=== PATIENT | female | born 1945 | race Two or more races ===

== ENCOUNTER 2022-06-06 12:38 | Inpatient (IN) | payer MEDICARE, MEDICAID ==
[~2022-06-06] VITALS: Ht 165.1 cm; Wt 95.9 kg
[2022-06-06] MEDS ORDERED: HYDRALAZINE 20MG/ML VIAL IV ONE (14:00)
[2022-06-06] MEDS ORDERED: ACETAMINOPHEN 325MG TABLET PO ONE (14:00)
[2022-06-06 14:50] LABS: MEAN CORPUSCULAR HEMOGLOBIN 30.9 pg (28.0-32.0); MEAN CORPUSCULAR VOLUME 90.6 fL (81.0-99.0); MEAN PLATELET VOLUME 9.1 fl (7.4-10.4); PLATELET 258 x1000/uL (130-400); RED BLOOD CELL COUNT 5.52 mill/uL (4.2-5.4); RED CELL DISTRIBUTION WIDTH 13.5 % (11.6-14.6)
[2022-06-06 14:56] LABS: CHLORIDE 96 mEq/L (98-107)
[2022-06-06] MEDS ORDERED: ONDANSETRON HCL 4MG/2ML INJ IV ONE (15:00)
[2022-06-06] MEDS ORDERED: SODIUM CHLORIDE 0.9% 1,000 ML IV SCH (15:00)
[2022-06-06 15:17] LABS: PLATELET ESTIMATE NORMAL
[2022-06-06 15:26] LABS: CLARITY URINE CLEAR (CLEAR); COLOR URINE YELLOW (YELLOW); KETONES URINE 3+ (NEGATIVE); LEUKOCYTE ESTERASE URINE NEGATIVE (NEGATIVE); NITRITE URINE NEGATIVE (NEGATIVE); OCCULT BLOOD URINE 1+ (NEGATIVE); PH URINE 6.5 (4.5-8.0); PROTEIN URINE 3+ (NEGATIVE); SPECIFIC GRAVITY URINE 1.021 (1.005-1.030)
[2022-06-06] MEDS ORDERED: ASPIRIN 325MG EC TABLET PO NR (15:30)
[2022-06-06] MEDS ORDERED: HALOPERIDOL LACTATE 5MG/ML VIAL IM ONE (18:00)
[2022-06-06] MEDS ORDERED: LORAZEPAM 2MG/ML CPJ IV ONE (19:15)
[2022-06-06] MEDS ORDERED: ENOXAPARIN 80MG/0.8ML SYR SUBCUT NR (21:30)
[2022-06-06] MEDS ORDERED: BENZ1TAB79 PO (22:33)
[2022-06-06] MEDS ORDERED: HALO2TAB2 PO (22:36)
[2022-06-06] MEDS ORDERED: AMLO10TA4 PO (22:36)
[2022-06-06] MEDS ORDERED: LOSA25TA3 PO (22:36)
[2022-06-06] MEDS ORDERED: DIVA125T2 PO (22:36)
[2022-06-06] MEDS ORDERED: DEXTROSE 50% WATER 50ML SYRINGE IV PRN (22:45)
[2022-06-06] MEDS ORDERED: ACETAMINOPHEN 325MG TABLET PO PRN (22:45)
[2022-06-06] MEDS: BLOOD SUGAR DIAGNOSTIC STRIP TEST SCH (22:50)
[2022-06-06] MEDS: INSULIN LISPRO 100 UNITS/ML SUBCUT SCH (22:50)
[2022-06-06 23:00] VITALS: BP 168/60
[2022-06-06] MEDS ORDERED: NITROGLYCERIN 0.4MG TABLET SL SL PRN (23:15)
[2022-06-06] MEDS: HYDRALAZINE 20MG/ML VIAL IV PRN (23:25)
[2022-06-07] MEDS: BLOOD SUGAR DIAGNOSTIC STRIP TEST SCH ×4 (06:18→21:00)
[2022-06-07 07:19] LABS: PROTHROMBIN TIME 10.3 sec (9.6-11.0)
[2022-06-07 07:20] LABS: HEMATOCRIT. 45.6 % (36.0-48.0); HEMOGLOBIN. 15.9 g/dL (12.0-16.0); MEAN CORPUSCULAR HEMOGLOBIN 31.1 pg (28.0-32.0); MEAN CORPUSCULAR VOLUME 89.3 fL (81.0-99.0); MEAN PLATELET VOLUME 8.8 fl (7.4-10.4); PLATELET 271 x1000/uL (130-400); RED BLOOD CELL COUNT 5.11 mill/uL (4.2-5.4); RED CELL DISTRIBUTION WIDTH 13.7 % (11.6-14.6)
[2022-06-07 07:37] LABS: CHLORIDE 99 mEq/L (98-107)
[2022-06-07 07:47] LABS: HDL CHOLESTEROL 97 mg/dL (40-59); LDL CHOLESTEROL 74 mg/dL (5-100)
[2022-06-07 08:00] VITALS: BP 127/67
[2022-06-07] MEDS: INSULIN LISPRO 100 UNITS/ML SUBCUT SCH ×3 (08:10→17:54)
[2022-06-07] MEDS ORDERED: METOPROLOL SUCCINATE 50MG ER TABLET PO SCH (09:00)
[2022-06-07] MEDS: METOPROLOL TARTRATE 50MG TABLET PO SCH ×2 (09:00→23:22)
[2022-06-07] MEDS: HALOPERIDOL 5MG TABLET PO SCH (09:00)
[2022-06-07] MEDS: DIVALPROEX SODIUM 125MG DR TABLET PO SCH ×2 (09:00→16:42)
[2022-06-07] MEDS: LOSARTAN POTASSIUM 25 MG TABLET PO SCH (09:00)
[2022-06-07] MEDS: ATORVASTATIN CALCIUM 40MG TABLET PO SCH (09:00)
[2022-06-07] MEDS: AMLODIPINE 10MG TABLET PO SCH (09:00)
[2022-06-07] MEDS: BENZTROPINE MESYLATE 1MG TABLET PO SCH ×2 (09:00→16:42)
[2022-06-07] MEDS: ENOXAPARIN 80MG/0.8ML SYR SUBCUT SCH ×2 (09:00→23:21)
[2022-06-07 14:06] LABS: PLATELET ESTIMATE NORMAL
[2022-06-07] MEDS ORDERED: CEFTRIAXONE 1GM PREMIX 50 ML IV SCH (14:30)
[2022-06-07 16:00] VITALS: BP 156/66
[2022-06-07] MEDS: CEFTRIAXONE 1,000 MG in DEXTROSE 5% WATER 50 ML IV SCH (16:00)
[2022-06-07 20:00] VITALS: BP 136/88
[2022-06-08] VITALS: BP 140/69
[2022-06-08 04:00] VITALS: BP 135/71
[2022-06-08 06:15] LABS: BASOPHILS % 0.1 % (0.0-2.0); HEMOGLOBIN. 15.9 g/dL (12.0-16.0); LYMPHOCYTES % 7.9 % (20.0-50.0); MEAN CORPUSCULAR HEMOGLOBIN 31.1 pg (28.0-32.0); MEAN CORPUSCULAR VOLUME 90.1 fL (81.0-99.0); MEAN PLATELET VOLUME 8.9 fl (7.4-10.4); MONOCYTES % 6.3 % (2.0-8.0); NEUTROPHILS % 85.7 % (40.0-76.0); PLATELET 254 x1000/uL (130-400); RED CELL DISTRIBUTION WIDTH 13.9 % (11.6-14.6)
[2022-06-08] MEDS: BLOOD SUGAR DIAGNOSTIC STRIP TEST SCH ×4 (07:53→20:51)
[2022-06-08 08:00] VITALS: BP 159/77
[2022-06-08 08:21] LABS: CHLORIDE 104 mEq/L (98-107)
[2022-06-08] MEDS: AMLODIPINE 10MG TABLET PO SCH (08:59)
[2022-06-08] MEDS: LOSARTAN POTASSIUM 25 MG TABLET PO SCH (08:59)
[2022-06-08] MEDS: HALOPERIDOL 5MG TABLET PO SCH (08:59)
[2022-06-08] MEDS: METOPROLOL TARTRATE 50MG TABLET PO SCH ×2 (08:59→20:51)
[2022-06-08] MEDS: BENZTROPINE MESYLATE 1MG TABLET PO SCH ×2 (09:00→17:16)
[2022-06-08] MEDS: ENOXAPARIN 80MG/0.8ML SYR SUBCUT SCH ×2 (09:00→20:50)
[2022-06-08] MEDS: ASPIRIN 81MG TABLET PO SCH (09:00)
[2022-06-08] MEDS: ATORVASTATIN CALCIUM 40MG TABLET PO SCH (10:04)
[2022-06-08 12:00] VITALS: BP 150/100
[2022-06-08] MEDS ORDERED: POTASSIUM CHLORIDE 20MEQ TABLET SR PO NR (13:00)
[2022-06-08 16:00] VITALS: BP 134/69
[2022-06-08] MEDS: CEFTRIAXONE 1,000 MG in DEXTROSE 5% WATER 50 ML IV SCH (17:07)
[2022-06-08] MEDS: DIVALPROEX SODIUM 125MG SPRINKLE CAPSULE PO SCH (17:16)
[2022-06-08 20:00] VITALS: BP 147/63
[2022-06-09] VITALS: BP 160/79
[2022-06-09] MEDS: HYDRALAZINE 20MG/ML VIAL IV PRN (00:04)
[2022-06-09 04:00] VITALS: BP 127/71
[2022-06-09] MEDS: BLOOD SUGAR DIAGNOSTIC STRIP TEST SCH ×4 (06:49→21:00)
[2022-06-09 08:00] VITALS: BP 148/68
[2022-06-09] MEDS: LOSARTAN POTASSIUM 25 MG TABLET PO SCH (08:17)
[2022-06-09] MEDS: ASPIRIN 81MG TABLET PO SCH (08:18)
[2022-06-09] MEDS: ATORVASTATIN CALCIUM 40MG TABLET PO SCH (09:00)
[2022-06-09] MEDS: DIVALPROEX SODIUM 125MG SPRINKLE CAPSULE PO SCH ×2 (09:00→17:00)
[2022-06-09] MEDS: METOPROLOL TARTRATE 50MG TABLET PO SCH ×2 (09:00→21:00)
[2022-06-09] MEDS: HALOPERIDOL 5MG TABLET PO SCH (09:00)
[2022-06-09] MEDS: AMLODIPINE 10MG TABLET PO SCH (09:00)
[2022-06-09] MEDS: BENZTROPINE MESYLATE 1MG TABLET PO SCH ×2 (09:00→17:00)
[2022-06-09] MEDS: ENOXAPARIN 80MG/0.8ML SYR SUBCUT SCH ×2 (10:23→21:43)
[2022-06-09] MEDS: CEFTRIAXONE 1,000 MG in DEXTROSE 5% WATER 50 ML IV SCH (15:17)
[2022-06-09 16:00] VITALS: BP 108/98
[2022-06-09 20:00] VITALS: BP 118/78
[2022-06-10] VITALS (33 sets, daily range): BP systolic 79–152; BP diastolic 51–107
[2022-06-10] MEDS: ACETAMINOPHEN 650MG SUPP PR PRN (01:25)
[2022-06-10 01:47] LABS: CHLORIDE 109 mEq/L (98-107)
[2022-06-10] MEDS: BLOOD SUGAR DIAGNOSTIC STRIP TEST SCH ×2 (05:24→18:00)
[2022-06-10 05:31] LABS: BASOPHILS % 0.1 % (0.0-2.0); HEMATOCRIT. 49.8 % (36.0-48.0); HEMOGLOBIN. 16.4 g/dL (12.0-16.0); LYMPHOCYTES % 8.4 % (20.0-50.0); MEAN CORPUSCULAR HEMOGLOBIN 30.2 pg (28.0-32.0); MEAN CORPUSCULAR VOLUME 91.9 fL (81.0-99.0); MEAN PLATELET VOLUME 9.1 fl (7.4-10.4); MONOCYTES % 11.3 % (2.0-8.0); NEUTROPHILS % 80.2 % (40.0-76.0); PLATELET 292 x1000/uL (130-400); RED BLOOD CELL COUNT 5.42 mill/uL (4.2-5.4)
[2022-06-10] MEDS: ATORVASTATIN CALCIUM 40MG TABLET PO SCH (09:00)
[2022-06-10] MEDS: METOPROLOL TARTRATE 50MG TABLET PO SCH ×2 (09:00→20:25)
[2022-06-10] MEDS: LOSARTAN POTASSIUM 25 MG TABLET PO SCH (09:00)
[2022-06-10] MEDS: AMLODIPINE 10MG TABLET PO SCH (09:00)
[2022-06-10 11:50] LABS: BG BASE EXCESS 3.5 mmol/L (-2.0-2.0); BG CARBOXYHEMOGLOBIN 0.5 % (0.5-1.5); BG DEOXYHEMOGLOBIN 6.9 % (0.0-5.0); BG FRACTION INSPIRED OXYGEN 28; BG HCO3 ACT 26.7 mmol/L (22.0-26.0); BG OXYGEN SATURATION 93.1 % (92.0-98.5); BG OXYHEMOGLOBIN 92.6 % (94.0-97.0); BG PCO2 36.2 mmHg (35.0-45.0); BG PH 7.485 (7.350-7.450); BG PO2 65.8 mmHg (75.0-100.0); BG SAMPLE SITE LEFT RADIAL; BG TOTAL HEMOGLOBIN 17.6 g/dL (12.0-18.0); BG VENT MODE NASAL CANNULA
[2022-06-10] MEDS ORDERED: LEVETIRACETAM 500 MG in SODIUM CHLORIDE 0.9% 100 ML IV SCH (12:30)
[2022-06-10] MEDS ORDERED: POTASSIUM CHLORIDE INJ 40 MEQ in DEXT 5% WATER 250 ML IV ONE (12:30)
[2022-06-10] MEDS ORDERED: NICARDIPINE 50 MG in SODIUM CHLORIDE 0.9% 230 ML IV PRN (12:30)
[2022-06-10] MEDS ORDERED: SODIUM CHLORIDE 0.9% 1,000 ML IV SCH (13:00)
[2022-06-10] MEDS ORDERED: MANNITOL 12.5G (25%) VIAL 50ML IV ONE (13:15)
[2022-06-10] MEDS: NICARDIPINE 100 MG in SODIUM CHLORIDE 0.9% 60 ML IV PRN (13:58)
[2022-06-10] MEDS ORDERED: LEVETIRACETAM 500MG PREMIX 100 ML IV SCH (14:00)
[2022-06-10] MEDS ORDERED: PROTAMINE SULFATE 10MG/ML VIAL 5ML IV NR (14:00)
[2022-06-10] MEDS ORDERED: MANNITOL 20% 200 ML IV NR (14:30)
[2022-06-10 14:36] LABS: BG BASE EXCESS 2.2 mmol/L (-2.0-2.0); BG CARBOXYHEMOGLOBIN 0.6 % (0.5-1.5); BG DEOXYHEMOGLOBIN 0.6 % (0.0-5.0); BG FRACTION INSPIRED OXYGEN 100; BG HCO3 ACT 26.3 mmol/L (22.0-26.0); BG METHEMOGLOBIN 0.3 % (0.0-1.5); BG OXYGEN SATURATION 99.4 % (92.0-98.5); BG OXYHEMOGLOBIN 98.5 % (94.0-97.0); BG PCO2 39.3 mmHg (35.0-45.0); BG PH 7.444 (7.350-7.450); BG PO2 451.1 mmHg (75.0-100.0); BG SAMPLE SITE RIGHT BRACHIAL; BG TOTAL HEMOGLOBIN 16.9 g/dL (12.0-18.0); BG VENT MODE VENT - AC
[2022-06-10] MEDS ORDERED: LIDOCAINE HCL/EPINEPHRINE 1%-EPI 1:100,000 30 ML VIAL INFIL ONE (14:37)
[2022-06-10] MEDS ORDERED: GENTAMICIN SULF 40MG/ML 2ML VIAL ONE (14:37)
[2022-06-10] MEDS ORDERED: ROCURONIUM BROMIDE 10MG/ML VIAL 5ML IV ONE (15:02)
[2022-06-10] MEDS ORDERED: NEOSTIGMINE METHYLSULFATE 1MG/ML 10 ML VIAL ONE (15:02)
[2022-06-10] MEDS ORDERED: GLYCOPYRROLATE 0.2 MG/ML 2ML VIAL ONE ×2 (15:02→15:03)
[2022-06-10] MEDS ORDERED: DEXAMETHASONE 4MG/ML 1ML VIAL ONE (15:02)
[2022-06-10] MEDS ORDERED: PROPOFOL 200MG/20ML VIAL IV ONE (15:02)
[2022-06-10] MEDS ORDERED: ONDANSETRON HCL 4MG/2ML INJ ONE (15:02)
[2022-06-10] MEDS ORDERED: MIDAZOLAM HCL 2 MG/2 ML VIAL ONE (15:03)
[2022-06-10] MEDS ORDERED: FENTANYL CITRATE/PF 50MCG/ML 2ML VIAL ONE (15:03)
[2022-06-10] MEDS ORDERED: NOREPINEPHRINE 8 MG in DEXTROSE 5% WATER 250 ML IV PRN (16:00)
[2022-06-10] MEDS ORDERED: NOREPINEPHRINE 8MG/250ML PMX 250 ML IV PRN (16:02)
[2022-06-10] MEDS ORDERED: BACITRACIN 15GM TUBE TOP ONE (16:21)
[2022-06-10] MEDS ORDERED: NALOXONE HCL 0.4MG/ML VIAL IV PRN (17:45)
[2022-06-10] MEDS ORDERED: MORPHINE SULFATE 4 MG/ML CPJ (NOT FOR IM USE) IV PRN (17:45)
[2022-06-10] MEDS ORDERED: BLOOD SUGAR DIAGNOSTIC STRIP TEST SCH (18:00)
[2022-06-10] MEDS ORDERED: PIPERACILLIN/TAZOBACTAM 3.375 G in DEXTROSE 5% WATER 50 ML IV NR (18:30)
[2022-06-10] MEDS: CEFAZOLIN 1000MG PREMIX 50 ML IV SCH (19:30)
[2022-06-10] MEDS: IPRATROPIUM/ALBUTEROL 0.5-3(2.5)MG/3ML NEB HHN SCH (20:22)
[2022-06-10] MEDS: LEVETIRACETAM 500MG PREMIX 100 ML IV SCH (20:32)
[2022-06-10] MEDS ORDERED: CEFAZOLIN SODIUM 1000MG/VIAL IV SCH (22:00)
[2022-06-10] MEDS: PIPERACILLIN/TAZOBACTAM 3.375 G in DEXTROSE 5% WATER 50 ML IV SCH (22:11)
[2022-06-10] MEDS: KCL 20MEQ/100ML X 2 FOR TOTAL KCL 40MEQ/200ML IV SCH (22:37)
[2022-06-11] VITALS (91 sets, daily range): BP systolic 72–136; BP diastolic 59–95
[2022-06-11] MEDS: BLOOD SUGAR DIAGNOSTIC STRIP TEST SCH ×5 (00:17→21:35)
[2022-06-11] MEDS: KCL 20MEQ/100ML X 2 FOR TOTAL KCL 40MEQ/200ML IV SCH (00:18)
[2022-06-11] MEDS: CEFAZOLIN 1000MG PREMIX 50 ML IV SCH ×3 (02:33→18:35)
[2022-06-11] MEDS: IPRATROPIUM/ALBUTEROL 0.5-3(2.5)MG/3ML NEB HHN SCH ×4 (02:35→20:22)
[2022-06-11] MEDS: FENTANYL 2500MCG/250ML PMX 250 ML IV PRN (02:57)
[2022-06-11 04:41] LABS: BASOPHILS % 0.3 % (0.0-2.0); LYMPHOCYTES % 10.9 % (20.0-50.0); MEAN CORPUSCULAR HEMOGLOBIN 30.5 pg (28.0-32.0); MEAN CORPUSCULAR VOLUME 91.5 fL (81.0-99.0); MEAN PLATELET VOLUME 9.1 fl (7.4-10.4); MONOCYTES % 13.6 % (2.0-8.0); NEUTROPHILS % 75.2 % (40.0-76.0); PLATELET 235 x1000/uL (130-400); RED BLOOD CELL COUNT 5.24 mill/uL (4.2-5.4); RED CELL DISTRIBUTION WIDTH 13.7 % (11.6-14.6)
[2022-06-11] MEDS: PIPERACILLIN/TAZOBACTAM 3.375 G in DEXTROSE 5% WATER 50 ML IV SCH ×3 (05:19→22:58)
[2022-06-11] MEDS: LOSARTAN POTASSIUM 25 MG TABLET PO SCH (09:00)
[2022-06-11] MEDS: METOPROLOL TARTRATE 50MG TABLET PO SCH (09:00)
[2022-06-11] MEDS: AMLODIPINE 10MG TABLET PO SCH (09:00)
[2022-06-11] MEDS: ATORVASTATIN CALCIUM 40MG TABLET PO SCH (09:00)
[2022-06-11] MEDS: DEXT 5%/LACTATED RINGERS 1,000 ML IV SCH (09:19)
[2022-06-11] MEDS: LEVETIRACETAM 500MG PREMIX 100 ML IV SCH ×2 (09:19→21:35)
[2022-06-11 10:59] LABS: BG BASE EXCESS 1.1 mmol/L (-2.0-2.0); BG CARBOXYHEMOGLOBIN 1.2 % (0.5-1.5); BG DEOXYHEMOGLOBIN 2.5 % (0.0-5.0); BG FRACTION INSPIRED OXYGEN 40; BG METHEMOGLOBIN 0.1 % (0.0-1.5); BG OXYGEN SATURATION 97.5 % (92.0-98.5); BG OXYHEMOGLOBIN 96.2 % (94.0-97.0); BG PCO2 29.8 mmHg (35.0-45.0); BG PH 7.505 (7.350-7.450); BG PO2 92.6 mmHg (75.0-100.0); BG SAMPLE SITE ALINE; BG TOTAL HEMOGLOBIN 16.1 g/dL (12.0-18.0); BG VENT MODE VENT - AC
[2022-06-11] MEDS ORDERED: DEXTROSE 50% WATER 50ML SYRINGE IV PRN (12:45)
[2022-06-11] MEDS: INSULIN LISPRO 100 UNITS/ML SUBCUT SCH ×2 (18:36→21:36)
[2022-06-12] VITALS (96 sets, daily range): BP systolic 78–124; BP diastolic 45–87
[2022-06-12] MEDS: NICARDIPINE 100 MG in SODIUM CHLORIDE 0.9% 60 ML IV PRN ×2 (01:59→22:00)
[2022-06-12] MEDS: DEXT 5%/LACTATED RINGERS 1,000 ML IV SCH ×2 (02:00→17:29)
[2022-06-12] MEDS: CEFAZOLIN 1000MG PREMIX 50 ML IV SCH ×3 (02:01→18:09)
[2022-06-12] MEDS: IPRATROPIUM/ALBUTEROL 0.5-3(2.5)MG/3ML NEB HHN SCH ×4 (02:30→20:05)
[2022-06-12 05:16] LABS: BASOPHILS % 0.1 % (0.0-2.0); EOSINOPHILS % 0.1 % (0.0-5.0); HEMATOCRIT. 44.2 % (36.0-48.0); HEMOGLOBIN. 14.6 g/dL (12.0-16.0); MEAN CORPUSCULAR HEMOGLOBIN 30.5 pg (28.0-32.0); MEAN CORPUSCULAR VOLUME 92.6 fL (81.0-99.0); MEAN PLATELET VOLUME 9.6 fl (7.4-10.4); MONOCYTES % 9.2 % (2.0-8.0); NEUTROPHILS % 79.6 % (40.0-76.0); PLATELET 177 x1000/uL (130-400); RED BLOOD CELL COUNT 4.77 mill/uL (4.2-5.4); RED CELL DISTRIBUTION WIDTH 14.4 % (11.6-14.6)
[2022-06-12] MEDS: PIPERACILLIN/TAZOBACTAM 3.375 G in DEXTROSE 5% WATER 50 ML IV SCH ×3 (05:34→21:03)
[2022-06-12] MEDS: BLOOD SUGAR DIAGNOSTIC STRIP TEST SCH ×4 (06:14→21:03)
[2022-06-12] MEDS: INSULIN LISPRO 100 UNITS/ML SUBCUT SCH ×5 (06:18→21:04)
[2022-06-12] MEDS ORDERED: POTASSIUM CHLORIDE INJ 40 MEQ in DEXT 5% WATER 250 ML IV ONE (08:00)
[2022-06-12] MEDS: LEVETIRACETAM 500MG PREMIX 100 ML IV SCH ×2 (08:58→21:03)
[2022-06-12] MEDS: PANTOPRAZOLE SODIUM 40 MG/VIAL IV SCH (08:58)
[2022-06-12] MEDS: ATORVASTATIN CALCIUM 40MG TABLET PO SCH (08:58)
[2022-06-12 09:11] LABS: BG BASE EXCESS 2.1 mmol/L (-2.0-2.0); BG CARBOXYHEMOGLOBIN 0.1 % (0.5-1.5); BG DEOXYHEMOGLOBIN 3.7 % (0.0-5.0); BG FRACTION INSPIRED OXYGEN 40; BG HCO3 ACT 25.7 mmol/L (22.0-26.0); BG METHEMOGLOBIN 0.3 % (0.0-1.5); BG OXYGEN SATURATION 96.3 % (92.0-98.5); BG OXYHEMOGLOBIN 95.9 % (94.0-97.0); BG PCO2 37.2 mmHg (35.0-45.0); BG PH 7.458 (7.350-7.450); BG PO2 89.1 mmHg (75.0-100.0); BG SAMPLE SITE RIGHT RADIAL; BG TOTAL HEMOGLOBIN 15.4 g/dL (12.0-18.0); BG VENT MODE VENT - AC
[2022-06-12] MEDS: KCL 20MEQ/100ML X 2 FOR TOTAL KCL 40MEQ/200ML IV SCH ×2 (10:23→11:46)
[2022-06-13] VITALS (93 sets, daily range): BP systolic 94–126; BP diastolic 61–82
[2022-06-13] MEDS: IPRATROPIUM/ALBUTEROL 0.5-3(2.5)MG/3ML NEB HHN SCH ×4 (01:56→20:42)
[2022-06-13] MEDS: NICARDIPINE 100 MG in SODIUM CHLORIDE 0.9% 60 ML IV PRN ×2 (02:51→13:05)
[2022-06-13 05:33] LABS: BASOPHILS % 0.1 % (0.0-2.0); EOSINOPHILS % 0.2 % (0.0-5.0); HEMATOCRIT. 47.7 % (36.0-48.0); HEMOGLOBIN. 15.8 g/dL (12.0-16.0); LYMPHOCYTES % 10.1 % (20.0-50.0); MEAN CORPUSCULAR HEMOGLOBIN 31.3 pg (28.0-32.0); MEAN CORPUSCULAR VOLUME 94.9 fL (81.0-99.0); MEAN PLATELET VOLUME 9.9 fl (7.4-10.4); MONOCYTES % 10.3 % (2.0-8.0); NEUTROPHILS % 79.3 % (40.0-76.0); PLATELET 97 x1000/uL (130-400); RED BLOOD CELL COUNT 5.03 mill/uL (4.2-5.4)
[2022-06-13] MEDS: BLOOD SUGAR DIAGNOSTIC STRIP TEST SCH ×4 (05:42→20:40)
[2022-06-13] MEDS: PIPERACILLIN/TAZOBACTAM 3.375 G in DEXTROSE 5% WATER 50 ML IV SCH ×3 (05:43→22:39)
[2022-06-13] MEDS: INSULIN LISPRO 100 UNITS/ML SUBCUT SCH ×4 (05:59→20:40)
[2022-06-13 07:46] LABS: BG BASE EXCESS 1.4 mmol/L (-2.0-2.0); BG CARBOXYHEMOGLOBIN 0.3 % (0.5-1.5); BG DEOXYHEMOGLOBIN 2.8 % (0.0-5.0); BG HCO3 ACT 24.9 mmol/L (22.0-26.0); BG METHEMOGLOBIN 0.3 % (0.0-1.5); BG OXYGEN SATURATION 97.2 % (92.0-98.5); BG OXYHEMOGLOBIN 96.6 % (94.0-97.0); BG PCO2 35.7 mmHg (35.0-45.0); BG PH 7.461 (7.350-7.450); BG PO2 97.7 mmHg (75.0-100.0); BG SAMPLE SITE RIGHT RADIAL; BG TOTAL HEMOGLOBIN 14.5 g/dL (12.0-18.0); BG VENT MODE VENT - AC
[2022-06-13] MEDS: LEVETIRACETAM 500MG PREMIX 100 ML IV SCH ×2 (08:52→20:40)
[2022-06-13] MEDS: ATORVASTATIN CALCIUM 40MG TABLET PO SCH (08:52)
[2022-06-13] MEDS: PANTOPRAZOLE SODIUM 40 MG/VIAL IV SCH (08:52)
[2022-06-13] MEDS ORDERED: ACETAMINOPHEN 325MG TABLET PO PRN (10:00)
[2022-06-13] MEDS: DEXT 5%/LACTATED RINGERS 1,000 ML IV SCH (11:58)
[2022-06-14] VITALS (96 sets, daily range): BP systolic 100–145; BP diastolic 44–94
[2022-06-14] MEDS: IPRATROPIUM/ALBUTEROL 0.5-3(2.5)MG/3ML NEB HHN SCH ×4 (01:30→20:31)
[2022-06-14] MEDS: DEXT 5%/LACTATED RINGERS 1,000 ML IV SCH (03:45)
[2022-06-14] MEDS: PIPERACILLIN/TAZOBACTAM 3.375 G in DEXTROSE 5% WATER 50 ML IV SCH ×3 (06:13→21:33)
[2022-06-14] MEDS: BLOOD SUGAR DIAGNOSTIC STRIP TEST SCH ×4 (06:13→20:32)
[2022-06-14] MEDS: INSULIN LISPRO 100 UNITS/ML SUBCUT SCH ×4 (06:14→20:32)
[2022-06-14] MEDS: FENTANYL 2500MCG/250ML PMX 250 ML IV PRN (07:26)
[2022-06-14] MEDS: LEVETIRACETAM 500MG PREMIX 100 ML IV SCH ×2 (08:32→20:32)
[2022-06-14] MEDS: ATORVASTATIN CALCIUM 40MG TABLET PO SCH (08:32)
[2022-06-14] MEDS: PANTOPRAZOLE SODIUM 40 MG/VIAL IV SCH (08:32)
[2022-06-14] MEDS: NICARDIPINE 100 MG in SODIUM CHLORIDE 0.9% 60 ML IV PRN ×2 (09:27→22:16)
[2022-06-14 09:54] LABS: BASOPHILS % 0.1 % (0.0-2.0); EOSINOPHILS % 0.2 % (0.0-5.0); HEMOGLOBIN. 14.2 g/dL (12.0-16.0); LYMPHOCYTES % 8.8 % (20.0-50.0); MEAN CORPUSCULAR HEMOGLOBIN 30.7 pg (28.0-32.0); MEAN PLATELET VOLUME 10.2 fl (7.4-10.4); MONOCYTES % 10.8 % (2.0-8.0); NEUTROPHILS % 80.1 % (40.0-76.0); PLATELET 109 x1000/uL (130-400); RED BLOOD CELL COUNT 4.62 mill/uL (4.2-5.4); RED CELL DISTRIBUTION WIDTH 14.1 % (11.6-14.6)
[2022-06-14 09:58] LABS: CHLORIDE 130 mEq/L (98-107)
[2022-06-14] MEDS: SODIUM CHLORIDE 0.45% 1,000 ML IV SCH (12:09)
[2022-06-14] MEDS: KCL 20MEQ/100ML PREMIX 100 ML IV SCH ×2 (13:40→15:48)
[2022-06-14] MEDS: MORPHINE SULFATE 4 MG/ML CPJ (NOT FOR IM USE) IV PRN (23:10)
[2022-06-15] VITALS (94 sets, daily range): BP systolic 96–144; BP diastolic 60–99
[2022-06-15] MEDS: MORPHINE SULFATE 4 MG/ML CPJ (NOT FOR IM USE) IV PRN (01:18)
[2022-06-15] MEDS: IPRATROPIUM/ALBUTEROL 0.5-3(2.5)MG/3ML NEB HHN SCH ×3 (02:25→13:41)
[2022-06-15 05:03] LABS: BASOPHILS % 0.1 % (0.0-2.0); EOSINOPHILS % 0.1 % (0.0-5.0); HEMATOCRIT. 40.8 % (36.0-48.0); LYMPHOCYTES % 8.3 % (20.0-50.0); MEAN CORPUSCULAR HEMOGLOBIN 30.2 pg (28.0-32.0); MEAN CORPUSCULAR VOLUME 94.7 fL (81.0-99.0); MEAN PLATELET VOLUME 10.1 fl (7.4-10.4); MONOCYTES % 10.9 % (2.0-8.0); NEUTROPHILS % 80.6 % (40.0-76.0); PLATELET 88 x1000/uL (130-400); RED BLOOD CELL COUNT 4.31 mill/uL (4.2-5.4); RED CELL DISTRIBUTION WIDTH 14.9 % (11.6-14.6)
[2022-06-15 05:17] LABS: CHLORIDE 131 mEq/L (98-107)
[2022-06-15] MEDS: SODIUM CHLORIDE 0.45% 1,000 ML IV SCH ×2 (06:13→22:16)
[2022-06-15] MEDS: BLOOD SUGAR DIAGNOSTIC STRIP TEST SCH ×4 (06:13→21:39)
[2022-06-15] MEDS: PIPERACILLIN/TAZOBACTAM 3.375 G in DEXTROSE 5% WATER 50 ML IV SCH ×3 (06:13→22:16)
[2022-06-15] MEDS: INSULIN LISPRO 100 UNITS/ML SUBCUT SCH ×4 (06:14→21:00)
[2022-06-15] MEDS: LEVETIRACETAM 500MG PREMIX 100 ML IV SCH ×2 (08:17→21:28)
[2022-06-15] MEDS: ATORVASTATIN CALCIUM 40MG TABLET PO SCH (08:17)
[2022-06-15] MEDS: PANTOPRAZOLE SODIUM 40 MG/VIAL IV SCH (08:17)
[2022-06-15] MEDS ORDERED: FENTANYL 2500MCG/250ML PMX 250 ML IV PRN (15:00)
[2022-06-15] MEDS ORDERED: DESMOPRESSIN ACETATE 4MCG/ML AMP IV NR (16:00)
[2022-06-16] VITALS (93 sets, daily range): BP systolic 85–125; BP diastolic 53–89
[2022-06-16 05:10] LABS: BASOPHILS % 0.1 % (0.0-2.0); EOSINOPHILS % 0.5 % (0.0-5.0); HEMATOCRIT. 39.2 % (36.0-48.0); HEMOGLOBIN. 12.5 g/dL (12.0-16.0); LYMPHOCYTES % 8.2 % (20.0-50.0); MEAN CORPUSCULAR HEMOGLOBIN 30.5 pg (28.0-32.0); MEAN CORPUSCULAR VOLUME 95.9 fL (81.0-99.0); MEAN PLATELET VOLUME 11.1 fl (7.4-10.4); MONOCYTES % 7.6 % (2.0-8.0); NEUTROPHILS % 83.6 % (40.0-76.0); PLATELET 81 x1000/uL (130-400); RED BLOOD CELL COUNT 4.08 mill/uL (4.2-5.4); RED CELL DISTRIBUTION WIDTH 15.1 % (11.6-14.6)
[2022-06-16 05:25] LABS: CHLORIDE 132 mEq/L (98-107)
[2022-06-16] MEDS: NICARDIPINE 100 MG in SODIUM CHLORIDE 0.9% 60 ML IV PRN (06:03)
[2022-06-16] MEDS: BLOOD SUGAR DIAGNOSTIC STRIP TEST SCH ×4 (06:10→21:51)
[2022-06-16] MEDS: INSULIN LISPRO 100 UNITS/ML SUBCUT SCH ×4 (06:11→21:00)
[2022-06-16 08:09] LABS: BG BASE EXCESS 1.4 mmol/L (-2.0-2.0); BG CARBOXYHEMOGLOBIN 0.3 % (0.5-1.5); BG DEOXYHEMOGLOBIN 6.4 % (0.0-5.0); BG HCO3 ACT 24.6 mmol/L (22.0-26.0); BG METHEMOGLOBIN 0.3 % (0.0-1.5); BG OXYGEN SATURATION 93.6 % (92.0-98.5); BG PCO2 34.5 mmHg (35.0-45.0); BG PH 7.471 (7.350-7.450); BG PO2 69.7 mmHg (75.0-100.0); BG SAMPLE SITE RIGHT RADIAL; BG TOTAL HEMOGLOBIN 12.8 g/dL (12.0-18.0); BG VENT MODE VENT - AC
[2022-06-16] MEDS: ATORVASTATIN CALCIUM 40MG TABLET PO SCH (09:24)
[2022-06-16] MEDS: PANTOPRAZOLE SODIUM 40 MG/VIAL IV SCH (09:24)
[2022-06-16] MEDS: LEVETIRACETAM 500MG PREMIX 100 ML IV SCH ×2 (09:42→21:05)
[2022-06-16] MEDS: SODIUM CHLORIDE 0.45% 1,000 ML IV SCH (15:38)
[2022-06-16] MEDS: DESMOPRESSIN ACETATE 4MCG/ML AMP IV SCH (19:03)
[2022-06-17] VITALS (86 sets, daily range): BP systolic 112–150; BP diastolic 57–91
[2022-06-17 04:45] LABS: BASOPHILS % 0.1 % (0.0-2.0); EOSINOPHILS % 0.9 % (0.0-5.0); HEMATOCRIT. 36.5 % (36.0-48.0); HEMOGLOBIN. 11.9 g/dL (12.0-16.0); LYMPHOCYTES % 12.6 % (20.0-50.0); MEAN CORPUSCULAR HEMOGLOBIN 30.6 pg (28.0-32.0); MEAN CORPUSCULAR VOLUME 94.2 fL (81.0-99.0); MEAN PLATELET VOLUME 11.6 fl (7.4-10.4); MONOCYTES % 7.2 % (2.0-8.0); NEUTROPHILS % 79.2 % (40.0-76.0); PLATELET 75 x1000/uL (130-400); RED BLOOD CELL COUNT 3.88 mill/uL (4.2-5.4); RED CELL DISTRIBUTION WIDTH 14.3 % (11.6-14.6)
[2022-06-17 04:46] LABS: CHLORIDE 135 mEq/L (98-107)
[2022-06-17] MEDS: DESMOPRESSIN ACETATE 4MCG/ML AMP IV SCH ×2 (06:01→17:52)
[2022-06-17] MEDS ORDERED: DEXT 5% WATER 100 ML IV SCH (06:15)
[2022-06-17] MEDS: DEXTROSE 5% WATER 1,000 ML IV SCH (06:40)
[2022-06-17] MEDS: INSULIN LISPRO 100 UNITS/ML SUBCUT SCH ×4 (06:48→21:00)
[2022-06-17] MEDS: BLOOD SUGAR DIAGNOSTIC STRIP TEST SCH ×4 (06:48→21:21)
[2022-06-17] MEDS ORDERED: POTASSIUM CHLORIDE 20MEQ/PACKET PO SCH (08:00)
[2022-06-17] MEDS: ATORVASTATIN CALCIUM 40MG TABLET PO SCH (08:24)
[2022-06-17] MEDS: PANTOPRAZOLE SODIUM 40 MG/VIAL IV SCH (08:24)
[2022-06-17] MEDS: LEVETIRACETAM 500MG PREMIX 100 ML IV SCH ×2 (08:24→21:21)
[2022-06-17 08:47] LABS: BG CARBOXYHEMOGLOBIN 0.4 % (0.5-1.5); BG DEOXYHEMOGLOBIN 4.1 % (0.0-5.0); BG FRACTION INSPIRED OXYGEN 40; BG HCO3 ACT 23.3 mmol/L (22.0-26.0); BG METHEMOGLOBIN 0.1 % (0.0-1.5); BG OXYGEN SATURATION 95.9 % (92.0-98.5); BG OXYHEMOGLOBIN 95.4 % (94.0-97.0); BG PCO2 33.6 mmHg (35.0-45.0); BG PH 7.458 (7.350-7.450); BG SAMPLE SITE RIGHT RADIAL; BG TOTAL HEMOGLOBIN 12.8 g/dL (12.0-18.0); BG VENT MODE VENT - AC
[2022-06-17] MEDS: AMLODIPINE 10MG TABLET PO SCH (09:51)
[2022-06-18] VITALS (90 sets, daily range): BP systolic 108–151; BP diastolic 54–98
[2022-06-18 05:14] LABS: BASOPHILS % 0.1 % (0.0-2.0); EOSINOPHILS % 1.2 % (0.0-5.0); HEMATOCRIT. 39.4 % (36.0-48.0); HEMOGLOBIN. 12.7 g/dL (12.0-16.0); LYMPHOCYTES % 9.3 % (20.0-50.0); MEAN CORPUSCULAR HEMOGLOBIN 30.8 pg (28.0-32.0); MEAN CORPUSCULAR VOLUME 95.3 fL (81.0-99.0); MEAN PLATELET VOLUME 11.9 fl (7.4-10.4); MONOCYTES % 5.9 % (2.0-8.0); NEUTROPHILS % 83.5 % (40.0-76.0); PLATELET 86 x1000/uL (130-400); RED BLOOD CELL COUNT 4.13 mill/uL (4.2-5.4); RED CELL DISTRIBUTION WIDTH 14.8 % (11.6-14.6)
[2022-06-18 05:20] LABS: CHLORIDE 134 mEq/L (98-107)
[2022-06-18 05:24] LABS: PHOSPHORUS 3.2 mg/dL (2.5-4.9)
[2022-06-18] MEDS: DESMOPRESSIN ACETATE 4MCG/ML AMP IV SCH ×2 (05:36→17:39)
[2022-06-18] MEDS: DEXTROSE 5% WATER 1,000 ML IV SCH ×3 (05:37→21:20)
[2022-06-18] MEDS: BLOOD SUGAR DIAGNOSTIC STRIP TEST SCH ×4 (06:17→21:21)
[2022-06-18] MEDS: INSULIN LISPRO 100 UNITS/ML SUBCUT SCH ×4 (06:17→21:00)
[2022-06-18] MEDS: PANTOPRAZOLE SODIUM 40 MG/VIAL IV SCH (08:28)
[2022-06-18] MEDS: ATORVASTATIN CALCIUM 40MG TABLET PO SCH (08:28)
[2022-06-18] MEDS: LEVETIRACETAM 500MG PREMIX 100 ML IV SCH ×2 (08:29→21:21)
[2022-06-18] MEDS: AMLODIPINE 10MG TABLET PO SCH (08:29)
[2022-06-18 08:45] LABS: BG BASE EXCESS 2.1 mmol/L (-2.0-2.0); BG CARBOXYHEMOGLOBIN 0.6 % (0.5-1.5); BG DEOXYHEMOGLOBIN 2.2 % (0.0-5.0); BG FRACTION INSPIRED OXYGEN 40; BG HCO3 ACT 25.9 mmol/L (22.0-26.0); BG METHEMOGLOBIN 0.1 % (0.0-1.5); BG OXYGEN SATURATION 97.8 % (92.0-98.5); BG OXYHEMOGLOBIN 97.1 % (94.0-97.0); BG PCO2 37.5 mmHg (35.0-45.0); BG PH 7.457 (7.350-7.450); BG PO2 105.4 mmHg (75.0-100.0); BG SAMPLE SITE RIGHT RADIAL; BG TOTAL HEMOGLOBIN 13.6 g/dL (12.0-18.0); BG TOTAL RESPIRATORY RATE 17 b/min; BG VENT MODE VENT - SIMV
[2022-06-18] MEDS: HYDRALAZINE HCL 50MG TABLET PO SCH ×3 (09:51→21:20)
[2022-06-19] VITALS (83 sets, daily range): BP systolic 99–159; BP diastolic 22–104
[2022-06-19 05:27] LABS: CHLORIDE 123 mEq/L (98-107)
[2022-06-19] MEDS: BLOOD SUGAR DIAGNOSTIC STRIP TEST SCH ×4 (06:30→21:00)
[2022-06-19] MEDS: DESMOPRESSIN ACETATE 4MCG/ML AMP IV SCH ×2 (06:53→17:59)
[2022-06-19] MEDS: HYDRALAZINE HCL 50MG TABLET PO SCH ×3 (06:53→21:31)
[2022-06-19] MEDS: NICARDIPINE 100 MG in SODIUM CHLORIDE 0.9% 60 ML IV PRN (06:53)
[2022-06-19] MEDS: INSULIN LISPRO 100 UNITS/ML SUBCUT SCH ×4 (06:54→21:00)
[2022-06-19] MEDS ORDERED: POTASSIUM CHLORIDE 20MEQ/PACKET PO NR (08:00)
[2022-06-19 08:58] LABS: BASOPHILS % 0.1 % (0.0-2.0); EOSINOPHILS % 0.5 % (0.0-5.0); HEMATOCRIT. 38.7 % (36.0-48.0); HEMOGLOBIN. 12.6 g/dL (12.0-16.0); LYMPHOCYTES % 7.9 % (20.0-50.0); MEAN CORPUSCULAR HEMOGLOBIN 30.6 pg (28.0-32.0); MEAN CORPUSCULAR VOLUME 94.1 fL (81.0-99.0); MEAN PLATELET VOLUME 11.9 fl (7.4-10.4); MONOCYTES % 6.1 % (2.0-8.0); NEUTROPHILS % 85.4 % (40.0-76.0); PLATELET 97 x1000/uL (130-400); RED BLOOD CELL COUNT 4.11 mill/uL (4.2-5.4); RED CELL DISTRIBUTION WIDTH 14.8 % (11.6-14.6)
[2022-06-19] MEDS: PANTOPRAZOLE SODIUM 40 MG/VIAL IV SCH (09:29)
[2022-06-19] MEDS: LEVETIRACETAM 500MG PREMIX 100 ML IV SCH ×2 (09:30→21:31)
[2022-06-19] MEDS: ATORVASTATIN CALCIUM 40MG TABLET PO SCH (09:30)
[2022-06-19] MEDS: AMLODIPINE 10MG TABLET PO SCH (09:30)
[2022-06-19] MEDS: DEXTROSE 5% WATER 1,000 ML IV SCH (09:31)
[2022-06-19] MEDS ORDERED: POTASSIUM CHLORIDE INJ 40 MEQ in DEXT 5% WATER 250 ML IV ONE (09:45)
[2022-06-19 10:20] LABS: INR 1.1; PROTHROMBIN TIME 11.4 sec (9.6-11.0)
[2022-06-19] MEDS: KCL 20MEQ/100ML X 2 FOR TOTAL KCL 40MEQ/200ML IV SCH ×2 (11:25→12:53)
[2022-06-19] MEDS ORDERED: ROCURONIUM BROMIDE 10MG/ML VIAL 5ML IV ONE (13:08)
[2022-06-19] MEDS ORDERED: FENTANYL CITRATE/PF 50MCG/ML 2ML VIAL ONE (13:08)
[2022-06-20] VITALS (51 sets, daily range): BP systolic 100–159; BP diastolic 57–87
[2022-06-20] MEDS: DEXTROSE 5% WATER 1,000 ML IV SCH (03:02)
[2022-06-20 05:57] LABS: HEMATOCRIT. 37.1 % (36.0-48.0); HEMOGLOBIN. 12.2 g/dL (12.0-16.0); MEAN CORPUSCULAR HEMOGLOBIN 30.5 pg (28.0-32.0); MEAN CORPUSCULAR VOLUME 92.9 fL (81.0-99.0); MEAN PLATELET VOLUME 12.5 fl (7.4-10.4); PLATELET 96 x1000/uL (130-400); RED BLOOD CELL COUNT 3.99 mill/uL (4.2-5.4); RED CELL DISTRIBUTION WIDTH 14.2 % (11.6-14.6)
[2022-06-20] MEDS: DESMOPRESSIN ACETATE 4MCG/ML AMP IV SCH ×2 (05:57→17:56)
[2022-06-20] MEDS: BLOOD SUGAR DIAGNOSTIC STRIP TEST SCH ×4 (05:57→23:35)
[2022-06-20] MEDS: HYDRALAZINE HCL 50MG TABLET PO SCH ×3 (05:57→21:29)
[2022-06-20 06:03] LABS: CHLORIDE 118 mEq/L (98-107)
[2022-06-20 06:09] LABS: PHOSPHORUS 2.2 mg/dL (2.5-4.9)
[2022-06-20] MEDS: INSULIN LISPRO 100 UNITS/ML SUBCUT SCH ×4 (06:33→23:38)
[2022-06-20] MEDS: PANTOPRAZOLE SODIUM 40 MG/VIAL IV SCH (08:59)
[2022-06-20] MEDS: LEVETIRACETAM 500MG PREMIX 100 ML IV SCH ×2 (08:59→21:28)
[2022-06-20] MEDS: ATORVASTATIN CALCIUM 40MG TABLET PO SCH (08:59)
[2022-06-20] MEDS: AMLODIPINE 10MG TABLET PO SCH (09:00)
[2022-06-20] MEDS ORDERED: POTASSIUM PHOS,M-BASIC-D-BASIC 20 MMOL in DEXT 5% WATER 243.3333 ML IV NR (09:00)
[2022-06-20] MEDS: METOPROLOL TARTRATE 25MG TABLET PO SCH ×2 (09:01→21:29)
[2022-06-20 12:33] LABS: NUCLEATED RED BLOOD CELLS 1 /100 WBC; PLATELET ESTIMATE DECREASED
[2022-06-20] MEDS: ACETAMINOPHEN 650MG SUPP PR PRN ×2 (15:32→17:55)
[2022-06-21] VITALS (48 sets, daily range): BP systolic 96–143; BP diastolic 61–83
[2022-06-21] MEDS ORDERED: ACETAMINOPHEN 650MG/20.3ML UDC PO PRN (01:45)
[2022-06-21] MEDS: ACETAMINOPHEN 650MG/20.3ML UDC NG PRN (02:29)
[2022-06-21 04:50] LABS: HEMATOCRIT. 32.9 % (36.0-48.0); HEMOGLOBIN. 10.9 g/dL (12.0-16.0); MEAN CORPUSCULAR HEMOGLOBIN 31.1 pg (28.0-32.0); MEAN CORPUSCULAR VOLUME 93.5 fL (81.0-99.0); MEAN PLATELET VOLUME 13.3 fl (7.4-10.4); PLATELET 100 x1000/uL (130-400); RED BLOOD CELL COUNT 3.51 mill/uL (4.2-5.4); RED CELL DISTRIBUTION WIDTH 14.6 % (11.6-14.6)
[2022-06-21 05:07] LABS: CHLORIDE 117 mEq/L (98-107)
[2022-06-21] MEDS: HYDRALAZINE HCL 50MG TABLET PO SCH ×3 (05:08→22:04)
[2022-06-21] MEDS: BLOOD SUGAR DIAGNOSTIC STRIP TEST SCH ×3 (05:12→17:39)
[2022-06-21 05:13] LABS: PHOSPHORUS 2.8 mg/dL (2.5-4.9)
[2022-06-21] MEDS: INSULIN LISPRO 100 UNITS/ML SUBCUT SCH ×3 (05:25→17:48)
[2022-06-21] MEDS: DESMOPRESSIN ACETATE 4MCG/ML AMP IV SCH ×2 (05:25→17:47)
[2022-06-21] MEDS ORDERED: POTASSIUM CHLORIDE 20MEQ/PACKET PO NR (07:38)
[2022-06-21] MEDS: PANTOPRAZOLE SODIUM 40 MG/VIAL IV SCH (08:01)
[2022-06-21] MEDS: METOPROLOL TARTRATE 25MG TABLET PO SCH ×2 (08:02→22:04)
[2022-06-21] MEDS: AMLODIPINE 10MG TABLET PO SCH (08:02)
[2022-06-21] MEDS: LEVETIRACETAM 500MG PREMIX 100 ML IV SCH ×2 (08:02→22:03)
[2022-06-21] MEDS: ATORVASTATIN CALCIUM 40MG TABLET PO SCH (08:02)
[2022-06-21 09:07] LABS: PLATELET ESTIMATE DECREASED
[2022-06-21] MEDS: CEFEPIME 2,000 MG in DEXT 5% WATER 100 ML IV SCH (14:08)
[2022-06-21 17:59] LABS: BG BASE EXCESS 3.3 mmol/L (-2.0-2.0); BG CARBOXYHEMOGLOBIN 0.2 % (0.5-1.5); BG DEOXYHEMOGLOBIN 3.3 % (0.0-5.0); BG FRACTION INSPIRED OXYGEN 40; BG HCO3 ACT 24.5 mmol/L (22.0-26.0); BG METHEMOGLOBIN 0.2 % (0.0-1.5); BG OXYGEN SATURATION 96.7 % (92.0-98.5); BG OXYHEMOGLOBIN 96.3 % (94.0-97.0); BG PCO2 27.6 mmHg (35.0-45.0); BG PH 7.567 (7.350-7.450); BG PO2 80.2 mmHg (75.0-100.0); BG SAMPLE SITE RIGHT RADIAL; BG TOTAL HEMOGLOBIN 12.5 g/dL (12.0-18.0); BG VENT MODE VENT - AC
[2022-06-21] MEDS ORDERED: MORPHINE SULFATE 2 MG/ML CPJ (NOT FOR IM USE) IV PRN (18:15)
[2022-06-22] VITALS (26 sets, daily range): BP systolic 108–142; BP diastolic 55–80
[2022-06-22] MEDS: CEFEPIME 2,000 MG in DEXT 5% WATER 100 ML IV SCH ×2 (01:06→13:58)
[2022-06-22] MEDS: DEXTROSE 5% WATER 1,000 ML IV SCH ×2 (01:09→11:35)
[2022-06-22 04:47] LABS: CHLORIDE 118 mEq/L (98-107)
[2022-06-22 04:51] LABS: HEMATOCRIT. 33.9 % (36.0-48.0); HEMOGLOBIN. 11.2 g/dL (12.0-16.0); MEAN CORPUSCULAR HEMOGLOBIN 31.2 pg (28.0-32.0); MEAN CORPUSCULAR VOLUME 94.2 fL (81.0-99.0); RED CELL DISTRIBUTION WIDTH 14.9 % (11.6-14.6)
[2022-06-22 04:53] LABS: PROTHROMBIN TIME 10.9 sec (9.6-11.0)
[2022-06-22] MEDS: HYDRALAZINE HCL 50MG TABLET PO SCH ×3 (05:54→22:25)
[2022-06-22] MEDS: BLOOD SUGAR DIAGNOSTIC STRIP TEST SCH ×5 (05:55→23:18)
[2022-06-22] MEDS: DESMOPRESSIN ACETATE 4MCG/ML AMP IV SCH ×2 (06:06→18:22)
[2022-06-22] MEDS: INSULIN LISPRO 100 UNITS/ML SUBCUT SCH ×5 (06:06→23:18)
[2022-06-22] MEDS: LEVETIRACETAM 500MG PREMIX 100 ML IV SCH ×2 (08:06→20:48)
[2022-06-22] MEDS: ACETAMINOPHEN 650MG/20.3ML UDC NG PRN (08:06)
[2022-06-22] MEDS: PANTOPRAZOLE SODIUM 40 MG/VIAL IV SCH (08:06)
[2022-06-22] MEDS: METOPROLOL TARTRATE 25MG TABLET PO SCH ×2 (08:06→20:49)
[2022-06-22] MEDS: ATORVASTATIN CALCIUM 40MG TABLET PO SCH (08:07)
[2022-06-22] MEDS: AMLODIPINE 10MG TABLET PO SCH (08:07)
[2022-06-22 10:56] LABS: PLATELET 134 x1000/uL (130-400)
[2022-06-22 11:00] LABS: NUCLEATED RED BLOOD CELLS 1 /100 WBC; PLATELET ESTIMATE NORMAL
[2022-06-22] MEDS: ALBUTEROL (0.083%) 2.5MG/3ML NEB HHN SCH ×3 (13:03→20:31)
[2022-06-22] MEDS ORDERED: PROPOFOL 200MG/20ML VIAL IV ONE (13:08)
[2022-06-22] MEDS ORDERED: CEFAZOLIN 1000MG PREMIX 50 ML IV NR (14:00)
[2022-06-22] MEDS: ACETYLCYSTEINE 200MG/ML 20% VIAL 10ML INH SCH (17:06)
[2022-06-23] VITALS (12 sets, daily range): BP systolic 108–137; BP diastolic 62–78
[2022-06-23] MEDS: ALBUTEROL (0.083%) 2.5MG/3ML NEB HHN SCH ×6 (00:42→19:50)
[2022-06-23] MEDS: CEFEPIME 2,000 MG in DEXT 5% WATER 100 ML IV SCH ×2 (01:49→13:03)
[2022-06-23] MEDS: INSULIN LISPRO 100 UNITS/ML SUBCUT SCH ×4 (05:23→23:18)
[2022-06-23] MEDS: BLOOD SUGAR DIAGNOSTIC STRIP TEST SCH ×4 (05:24→23:13)
[2022-06-23] MEDS: METOCLOPRAMIDE HCL 10MG/2ML VIAL IV SCH ×4 (05:32→23:18)
[2022-06-23] MEDS: HYDRALAZINE HCL 50MG TABLET PO SCH ×3 (05:33→20:50)
[2022-06-23] MEDS: DESMOPRESSIN ACETATE 4MCG/ML AMP IV SCH ×2 (06:00→17:57)
[2022-06-23] MEDS: ACETYLCYSTEINE 200MG/ML 20% VIAL 10ML INH SCH ×2 (08:00→16:11)
[2022-06-23] MEDS: PANTOPRAZOLE SODIUM 40 MG/VIAL IV SCH (08:58)
[2022-06-23] MEDS: LEVETIRACETAM 500MG PREMIX 100 ML IV SCH ×2 (08:58→20:50)
[2022-06-23] MEDS: ATORVASTATIN CALCIUM 40MG TABLET PO SCH (08:58)
[2022-06-23] MEDS: AMLODIPINE 10MG TABLET PO SCH (08:59)
[2022-06-23] MEDS: DEXTROSE 5% WATER 1,000 ML IV SCH (08:59)
[2022-06-23] MEDS: METOPROLOL TARTRATE 25MG TABLET PO SCH ×2 (08:59→20:50)
[2022-06-23 11:02] LABS: HEMATOCRIT. 30.5 % (36.0-48.0); HEMOGLOBIN. 10.1 g/dL (12.0-16.0); MEAN CORPUSCULAR HEMOGLOBIN 30.6 pg (28.0-32.0); MEAN CORPUSCULAR VOLUME 92.2 fL (81.0-99.0); MEAN PLATELET VOLUME 12.9 fl (7.4-10.4); PLATELET 132 x1000/uL (130-400); RED BLOOD CELL COUNT 3.31 mill/uL (4.2-5.4); RED CELL DISTRIBUTION WIDTH 14.3 % (11.6-14.6)
[2022-06-23 11:49] LABS: CHLORIDE 115 mEq/L (98-107)
[2022-06-23] MEDS ORDERED: POTASSIUM CHLORIDE 20MEQ/PACKET PO NR (12:15)
[2022-06-23 22:42] LABS: PLATELET ESTIMATE NORMAL
[2022-06-24] VITALS (12 sets, daily range): BP systolic 117–153; BP diastolic 65–81
[2022-06-24] MEDS: ALBUTEROL (0.083%) 2.5MG/3ML NEB HHN SCH ×6 (00:19→20:35)
[2022-06-24] MEDS: ACETYLCYSTEINE 200MG/ML 20% VIAL 4ML INH SCH ×3 (00:20→15:36)
[2022-06-24] MEDS: CEFEPIME 2,000 MG in DEXT 5% WATER 100 ML IV SCH ×2 (02:04→13:04)
[2022-06-24] MEDS: DEXTROSE 5% WATER 1,000 ML IV SCH (02:04)
[2022-06-24] MEDS: METOCLOPRAMIDE HCL 10MG/2ML VIAL IV SCH ×4 (05:17→22:54)
[2022-06-24] MEDS: DESMOPRESSIN ACETATE 4MCG/ML AMP IV SCH (05:17)
[2022-06-24] MEDS: HYDRALAZINE HCL 50MG TABLET PO SCH ×3 (05:19→21:03)
[2022-06-24] MEDS: BLOOD SUGAR DIAGNOSTIC STRIP TEST SCH ×4 (05:19→22:54)
[2022-06-24] MEDS: INSULIN LISPRO 100 UNITS/ML SUBCUT SCH ×4 (05:19→23:03)
[2022-06-24 06:53] LABS: HEMATOCRIT. 30.8 % (36.0-48.0); HEMOGLOBIN. 10.2 g/dL (12.0-16.0); MEAN CORPUSCULAR HEMOGLOBIN 30.9 pg (28.0-32.0); MEAN CORPUSCULAR VOLUME 93.4 fL (81.0-99.0); MEAN PLATELET VOLUME 12.9 fl (7.4-10.4); PLATELET 172 x1000/uL (130-400); RED CELL DISTRIBUTION WIDTH 14.5 % (11.6-14.6)
[2022-06-24 08:29] LABS: CHLORIDE 113 mEq/L (98-107)
[2022-06-24] MEDS: AMLODIPINE 10MG TABLET PO SCH (09:29)
[2022-06-24] MEDS: PANTOPRAZOLE SODIUM 40 MG/VIAL IV SCH (09:29)
[2022-06-24] MEDS: LEVETIRACETAM 500MG PREMIX 100 ML IV SCH ×2 (09:29→21:03)
[2022-06-24] MEDS: METOPROLOL TARTRATE 25MG TABLET PO SCH ×2 (09:30→21:03)
[2022-06-24] MEDS: ATORVASTATIN CALCIUM 40MG TABLET PO SCH (09:30)
[2022-06-24] MEDS ORDERED: POTASSIUM CHLORIDE 20MEQ/PACKET PO NR (10:00)
[2022-06-24 10:11] LABS: PLATELET ESTIMATE NORMAL
[2022-06-25] VITALS (11 sets, daily range): BP systolic 111–149; BP diastolic 60–83
[2022-06-25] MEDS: ALBUTEROL (0.083%) 2.5MG/3ML NEB HHN SCH ×6 (00:19→20:19)
[2022-06-25] MEDS: ACETYLCYSTEINE 200MG/ML 20% VIAL 4ML INH SCH ×2 (00:19→08:22)
[2022-06-25] MEDS: CEFEPIME 2,000 MG in DEXT 5% WATER 100 ML IV SCH ×2 (01:10→13:44)
[2022-06-25] MEDS: BLOOD SUGAR DIAGNOSTIC STRIP TEST SCH ×3 (04:59→18:06)
[2022-06-25] MEDS: INSULIN LISPRO 100 UNITS/ML SUBCUT SCH ×3 (05:05→18:07)
[2022-06-25] MEDS: HYDRALAZINE HCL 50MG TABLET PO SCH ×3 (05:06→21:51)
[2022-06-25 08:00] LABS: HEMATOCRIT. 30.2 % (36.0-48.0); HEMOGLOBIN. 9.9 g/dL (12.0-16.0); MEAN CORPUSCULAR HEMOGLOBIN 30.6 pg (28.0-32.0); MEAN CORPUSCULAR VOLUME 93.2 fL (81.0-99.0); MEAN PLATELET VOLUME 12.3 fl (7.4-10.4); PLATELET 197 x1000/uL (130-400); RED BLOOD CELL COUNT 3.24 mill/uL (4.2-5.4); RED CELL DISTRIBUTION WIDTH 14.3 % (11.6-14.6)
[2022-06-25 08:39] LABS: CHLORIDE 113 mEq/L (98-107)
[2022-06-25] MEDS: PANTOPRAZOLE SODIUM 40 MG/VIAL IV SCH (08:59)
[2022-06-25] MEDS: METOPROLOL TARTRATE 25MG TABLET PO SCH ×2 (09:00→21:51)
[2022-06-25] MEDS: ACETAMINOPHEN 650MG/20.3ML UDC NG PRN ×2 (09:00→18:06)
[2022-06-25] MEDS: ATORVASTATIN CALCIUM 40MG TABLET PO SCH (09:00)
[2022-06-25] MEDS: AMLODIPINE 10MG TABLET PO SCH (09:00)
[2022-06-25] MEDS: LEVETIRACETAM 500MG PREMIX 100 ML IV SCH ×2 (09:12→21:51)
[2022-06-25 09:36] LABS: PLATELET ESTIMATE NORMAL
[2022-06-25] MEDS: ACETYLCYSTEINE 100MG/ML 10% VIAL 4ML INH SCH (16:58)
[2022-06-26] VITALS (12 sets, daily range): BP systolic 103–128; BP diastolic 60–71
[2022-06-26] MEDS: BLOOD SUGAR DIAGNOSTIC STRIP TEST SCH ×4 (00:18→18:30)
[2022-06-26] MEDS: ALBUTEROL (0.083%) 2.5MG/3ML NEB HHN SCH ×6 (00:20→20:29)
[2022-06-26] MEDS: ACETYLCYSTEINE 100MG/ML 10% VIAL 4ML INH SCH ×2 (00:20→12:25)
[2022-06-26] MEDS: INSULIN LISPRO 100 UNITS/ML SUBCUT SCH ×4 (00:39→18:00)
[2022-06-26] MEDS: CEFEPIME 2,000 MG in DEXT 5% WATER 100 ML IV SCH (02:50)
[2022-06-26] MEDS: HYDRALAZINE HCL 50MG TABLET PO SCH ×3 (06:37→21:35)
[2022-06-26 06:38] LABS: HEMOGLOBIN. 10.2 g/dL (12.0-16.0); MEAN CORPUSCULAR HEMOGLOBIN 30.4 pg (28.0-32.0); PLATELET 221 x1000/uL (130-400); RED BLOOD CELL COUNT 3.33 mill/uL (4.2-5.4); RED CELL DISTRIBUTION WIDTH 14.5 % (11.6-14.6)
[2022-06-26 06:46] LABS: CHLORIDE 112 mEq/L (98-107)
[2022-06-26] MEDS: LEVETIRACETAM 500MG PREMIX 100 ML IV SCH ×2 (08:52→21:32)
[2022-06-26] MEDS: ATORVASTATIN CALCIUM 40MG TABLET PO SCH (08:52)
[2022-06-26] MEDS: METOPROLOL TARTRATE 25MG TABLET PO SCH ×2 (08:53→21:35)
[2022-06-26] MEDS: AMLODIPINE 10MG TABLET PO SCH (08:53)
[2022-06-26] MEDS ORDERED: POTASSIUM CHLORIDE 20MEQ/PACKET PO SCH (09:00)
[2022-06-26] MEDS ORDERED: IPRATROPIUM/ALBUTEROL 0.5-3(2.5)MG/3ML NEB HHN PRN (11:45)
[2022-06-27] VITALS (12 sets, daily range): BP systolic 115–143; BP diastolic 46–75
[2022-06-27] MEDS: ALBUTEROL (0.083%) 2.5MG/3ML NEB HHN SCH ×4 (00:15→12:22)
[2022-06-27] MEDS: ACETYLCYSTEINE 100MG/ML 10% VIAL 4ML INH SCH ×3 (00:15→17:02)
[2022-06-27] MEDS: BLOOD SUGAR DIAGNOSTIC STRIP TEST SCH ×4 (00:54→17:26)
[2022-06-27] MEDS: INSULIN LISPRO 100 UNITS/ML SUBCUT SCH ×4 (06:10→17:50)
[2022-06-27] MEDS: HYDRALAZINE HCL 50MG TABLET PO SCH ×3 (06:10→22:00)
[2022-06-27 08:10] LABS: BASOPHILS % 0.3 % (0.0-2.0); EOSINOPHILS % 2.1 % (0.0-5.0); HEMATOCRIT. 29.4 % (36.0-48.0); HEMOGLOBIN. 9.8 g/dL (12.0-16.0); LYMPHOCYTES % 9.2 % (20.0-50.0); MEAN CORPUSCULAR HEMOGLOBIN 30.9 pg (28.0-32.0); MEAN CORPUSCULAR VOLUME 92.8 fL (81.0-99.0); MONOCYTES % 8.3 % (2.0-8.0); NEUTROPHILS % 80.1 % (40.0-76.0); PLATELET 244 x1000/uL (130-400); RED BLOOD CELL COUNT 3.17 mill/uL (4.2-5.4); RED CELL DISTRIBUTION WIDTH 14.7 % (11.6-14.6)
[2022-06-27] MEDS: ATORVASTATIN CALCIUM 40MG TABLET PO SCH (08:31)
[2022-06-27] MEDS: AMLODIPINE 10MG TABLET PO SCH (08:31)
[2022-06-27] MEDS: LEVETIRACETAM 500MG PREMIX 100 ML IV SCH (08:31)
[2022-06-27] MEDS: METOPROLOL TARTRATE 25MG TABLET PO SCH ×2 (08:31→21:00)
[2022-06-27 08:49] LABS: CHLORIDE 111 mEq/L (98-107)
[2022-06-27 09:16] LABS: PLATELET ESTIMATE NORMAL
[2022-06-27] MEDS ORDERED: POTASSIUM CHLORIDE 20MEQ TABLET SR PO SCH (09:30)
[2022-06-27 10:10] LABS: PHOSPHORUS 2.4 mg/dL (2.5-4.9)
[2022-06-27] MEDS: IPRATROPIUM/ALBUTEROL 0.5-3(2.5)MG/3ML NEB HHN SCH (20:56)
[2022-06-27] MEDS: LEVETIRACETAM 500MG/5ML CUP PO SCH (21:42)
[2022-06-28] VITALS (13 sets, daily range): BP systolic 117–144; BP diastolic 62–104
[2022-06-28] MEDS: BLOOD SUGAR DIAGNOSTIC STRIP TEST SCH ×4 (01:10→18:07)
[2022-06-28] MEDS: INSULIN LISPRO 100 UNITS/ML SUBCUT SCH ×4 (01:39→18:08)
[2022-06-28] MEDS: HYDRALAZINE HCL 50MG TABLET PO SCH ×3 (06:00→21:42)
[2022-06-28] MEDS: LEVETIRACETAM 500MG/5ML CUP PO SCH ×2 (08:54→21:42)
[2022-06-28] MEDS: ATORVASTATIN CALCIUM 40MG TABLET PO SCH (08:55)
[2022-06-28] MEDS: AMLODIPINE 10MG TABLET PO SCH (08:55)
[2022-06-28] MEDS: METOPROLOL TARTRATE 25MG TABLET PO SCH ×2 (08:55→21:42)
[2022-06-28] MEDS: IPRATROPIUM/ALBUTEROL 0.5-3(2.5)MG/3ML NEB HHN SCH ×4 (09:09→20:18)
[2022-06-28 16:10] LABS: BASOPHILS % 0.3 % (0.0-2.0); EOSINOPHILS % 1.9 % (0.0-5.0); HEMATOCRIT. 32.9 % (36.0-48.0); HEMOGLOBIN. 10.7 g/dL (12.0-16.0); LYMPHOCYTES % 8.5 % (20.0-50.0); MEAN CORPUSCULAR HEMOGLOBIN 30.5 pg (28.0-32.0); MEAN PLATELET VOLUME 11.4 fl (7.4-10.4); MONOCYTES % 7.2 % (2.0-8.0); NEUTROPHILS % 82.1 % (40.0-76.0); PLATELET 303 x1000/uL (130-400); RED BLOOD CELL COUNT 3.51 mill/uL (4.2-5.4); RED CELL DISTRIBUTION WIDTH 14.3 % (11.6-14.6)
[2022-06-28 16:27] LABS: CHLORIDE 110 mEq/L (98-107)
[2022-06-28 16:32] LABS: PHOSPHORUS 2.9 mg/dL (2.5-4.9)
[2022-06-29] VITALS (12 sets, daily range): BP systolic 118–135; BP diastolic 64–73
[2022-06-29] MEDS: BLOOD SUGAR DIAGNOSTIC STRIP TEST SCH ×4 (00:40→17:55)
[2022-06-29] MEDS: INSULIN LISPRO 100 UNITS/ML SUBCUT SCH ×4 (00:43→18:12)
[2022-06-29] MEDS: IPRATROPIUM/ALBUTEROL 0.5-3(2.5)MG/3ML NEB HHN SCH ×4 (01:38→20:41)
[2022-06-29] MEDS: HYDRALAZINE HCL 50MG TABLET PO SCH ×3 (05:44→22:22)
[2022-06-29 06:38] LABS: BASOPHILS % 0.2 % (0.0-2.0); EOSINOPHILS % 1.5 % (0.0-5.0); HEMATOCRIT. 29.4 % (36.0-48.0); HEMOGLOBIN. 9.8 g/dL (12.0-16.0); LYMPHOCYTES % 9.9 % (20.0-50.0); MEAN CORPUSCULAR HEMOGLOBIN 30.9 pg (28.0-32.0); MEAN CORPUSCULAR VOLUME 92.7 fL (81.0-99.0); MEAN PLATELET VOLUME 10.7 fl (7.4-10.4); MONOCYTES % 7.3 % (2.0-8.0); NEUTROPHILS % 81.1 % (40.0-76.0); PLATELET 274 x1000/uL (130-400); RED BLOOD CELL COUNT 3.17 mill/uL (4.2-5.4); RED CELL DISTRIBUTION WIDTH 14.4 % (11.6-14.6)
[2022-06-29 07:18] LABS: CHLORIDE 110 mEq/L (98-107)
[2022-06-29] MEDS ORDERED: POTASSIUM CHLORIDE 20MEQ/PACKET PO SCH (08:15)
[2022-06-29] MEDS: LEVETIRACETAM 500MG/5ML CUP PO SCH ×2 (10:18→22:22)
[2022-06-29] MEDS: AMLODIPINE 10MG TABLET PO SCH (10:18)
[2022-06-29] MEDS: METOPROLOL TARTRATE 25MG TABLET PO SCH ×2 (10:19→22:22)
[2022-06-29] MEDS: ATORVASTATIN CALCIUM 40MG TABLET PO SCH (10:25)
[2022-06-29] MEDS ORDERED: ACETYLCYSTEINE 100MG/ML 10% VIAL 4ML INH SCH (14:30)
[2022-06-29] MEDS: HYDRALAZINE 20MG/ML VIAL IV PRN ×2 (14:51→14:55)
[2022-06-30] VITALS: BP 122/73
[2022-06-30] MEDS: BLOOD SUGAR DIAGNOSTIC STRIP TEST SCH
[2022-06-30 00:14] VITALS: BP 123/70
[2022-06-30] MEDS: INSULIN LISPRO 100 UNITS/ML SUBCUT SCH (01:06)
[2022-06-30 02:00] VITALS: BP 129/73
[2022-06-30] MEDS: IPRATROPIUM/ALBUTEROL 0.5-3(2.5)MG/3ML NEB HHN SCH (02:11)
== END 2022-06-30 03:41 | disposition short-term general hospital (02) | DRG 3 ==
LOC: ER 12:38 → EDBD 12:38 → 7WST 18:42 → EDBEDREQ 18:45 → MICUSO 06-10 13:10 → 5EST 06-22 10:00
PROVIDERS: ADMIT Internal Medicine; ATTEND Internal Medicine
PROC: 0BH17EZ Insertion of Endotracheal Airway into Trachea, Via Natural or Artificial Opening (ICD-10-PCS; principal; 2022-06-10)
PROC: 009600Z Drainage of Cerebral Ventricle with Drainage Device, Open Approach (ICD-10-PCS; 2022-06-10)
PROC: 00H032Z Insertion of Monitoring Device into Brain, Percutaneous Approach (ICD-10-PCS; 2022-06-10)
PROC: 5A1955Z Respiratory Ventilation, Greater than 96 Consecutive Hours (ICD-10-PCS; 2022-06-10)
PROC: 4A103BD Monitoring of Intracranial Pressure, Percutaneous Approach (ICD-10-PCS; 2022-06-10)
PROC: 00C70ZZ Extirpation of Matter from Cerebral Hemisphere, Open Approach (ICD-10-PCS; 2022-06-11)
PROC: 02HV33Z Insertion of Infusion Device into Superior Vena Cava, Percutaneous Approach (ICD-10-PCS; 2022-06-13)
PROC: 0B110F4 Bypass Trachea to Cutaneous with Tracheostomy Device, Open Approach (ICD-10-PCS; 2022-06-23)
PROC: 0GBJ0ZZ Excision of Thyroid Gland Isthmus, Open Approach (ICD-10-PCS; 2022-06-23)
PROC: 0DB78ZX Excision of Stomach, Pylorus, Via Natural or Artificial Opening Endoscopic, Diagnostic (ICD-10-PCS; 2022-06-25)
PROC: 0DH63UZ Insertion of Feeding Device into Stomach, Percutaneous Approach (ICD-10-PCS; 2022-06-25)
PROC: 3E0G76Z Introduction of Nutritional Substance into Upper GI, Via Natural or Artificial Opening (ICD-10-PCS; 2022-06-25)
DX: A41.9 Sepsis, unspecified organism (principal); I61.5 Nontraumatic intracerebral hemorrhage, intraventricular; I21.A1 Myocardial infarction type 2; J69.0 Pneumonitis due to inhalation of food and vomit; J96.00 Acute respiratory failure, unspecified whether with hypoxia or hypercapnia; G91.1 Obstructive hydrocephalus; E87.20 Acidosis, unspecified; G93.40 Encephalopathy, unspecified; E87.0 Hyperosmolality and hypernatremia; N17.9 Acute kidney failure, unspecified; I16.0 Hypertensive urgency; F41.9 Anxiety disorder, unspecified; F31.9 Bipolar disorder, unspecified; F20.9 Schizophrenia, unspecified; E87.6 Hypokalemia; K52.9 Noninfective gastroenteritis and colitis, unspecified; D64.9 Anemia, unspecified; G93.89 Other specified disorders of brain; R13.10 Dysphagia, unspecified; I12.9 Hypertensive chronic kidney disease with stage 1 through stage 4 chronic kidney disease, or unspecified chronic kidney disease; Z20.822 Contact with and (suspected) exposure to COVID-19; K29.50 Unspecified chronic gastritis without bleeding; K44.9 Diaphragmatic hernia without obstruction or gangrene; R73.9 Hyperglycemia, unspecified; N18.9 Chronic kidney disease, unspecified; Z93.1 Gastrostomy status
CPT/HCPCS: 31500; 36415; 36573; 36600; 71045; 74018; 76770; 80048; 80053; 80061; 81003; 82375; 82570; 82805; 82962; 83036; 83605; 83735; 83880; 84100; 84145; 84156; 84295; 84478; 84484; 85025; 87070; 87426; 88304; 88305; 93005; 93306; 94002; 94003; 94640; 99285; A6261; C1725; C9113; J0360; J0690; J0692; J0696; J1100; J1580; J1630; J1650; J1815; J1953; J2060; J2250; J2270; J2405; J2543; J2597; J2704; J2710; J2720; J2765; J3010; J3480; J3490; J7050; J7060; J7070; J7120; J7121; J7608; C1713

== ENCOUNTER 2023-02-11 12:31 | Inpatient (IN) | payer MEDICARE, MEDICAID ==
[~2023-02-11] VITALS: Ht 167.6 cm; Wt 71.2 kg
[~2023-02-11 12:31] MED LIST: ASPI-1406 PO; KEPP500 MT; LEVO50TA8 PO; POTA-202 PEG
[2023-02-11] MEDS ORDERED: OCTREOTIDE 1,000 MCG in SODIUM CHLORIDE 0.9% 100 ML IV STA (12:34)
[2023-02-11] MEDS ORDERED: PANTOPRAZOLE SODIUM 40 MG/VIAL IV STA (12:34)
[2023-02-11] MEDS ORDERED: OCTREOTIDE ACETATE 50 MCG/ML 1ML IV STA (12:34)
[2023-02-11 13:58] LABS: MEAN CORPUSCULAR HEMOGLOBIN 32.2 pg (28.0-32.0); MEAN CORPUSCULAR HGB CONC 31.2 g/dL (31.0-37.0); MEAN CORPUSCULAR VOLUME 103.4 fL (81.0-99.0); MEAN PLATELET VOLUME 10.1 fl (7.4-10.4); PLATELET 185 x1000/uL (130-400); RED BLOOD CELL COUNT 1.28 mill/uL (4.2-5.4); RED CELL DISTRIBUTION WIDTH 15.3 % (11.6-14.6); WHITE BLOOD COUNT 9.6 x1000/uL (4.5-11.0)
[2023-02-11] MEDS ORDERED: OCTREOTIDE 1,000 MCG in SODIUM CHLORIDE 0.9% 100 ML IV ONE (14:00)
[2023-02-11 14:08] LABS: DIFFERENTIAL COMMENT 1
[2023-02-11 14:12] LABS: INR 1.1; PROTHROMBIN TIME 11.9 sec (9.6-11.0)
[2023-02-11 14:24] LABS: ALANINE AMINOTRANSFERASE 28 IU/L (10-49); ALBUMIN 2.2 g/dL (3.2-4.8); ASPARTATE AMINOTRANSFERASE 21 IU/L (<34); BILIRUBIN TOTAL 0.2 mg/dL (0.1-1.0); CARBON DIOXIDE 25 mEq/L (21-32); CHLORIDE 98 mEq/L (98-107); CREATININE 0.7 mg/dL (0.6-1.0); GLUCOSE 210 mg/dL (70-105); HEMATOCRIT. 13.2 % (36.0-48.0); HEMOGLOBIN. 4.1 g/dL (12.0-16.0); POTASSIUM 3.6 mEq/L (3.5-5.1); SODIUM 137 mEq/L (136-145); TROPONIN I HIGH SENSITIVITY 25 ng/L (3.0-34); UREA NITROGEN BLOOD 55 mg/dL (9-23)
[2023-02-11 14:30] LABS: CREATINE KINASE < 15 IU/L (34-145)
[2023-02-11 14:43] LABS: CLARITY URINE TURBID (CLEAR); COLOR URINE YELLOW (YELLOW); GLUCOSE URINE NEGATIVE (NEGATIVE); KETONES URINE NEGATIVE (NEGATIVE); LEUKOCYTE ESTERASE URINE 3+ (NEGATIVE); NITRITE URINE NEGATIVE (NEGATIVE); OCCULT BLOOD URINE 1+ (NEGATIVE); PH URINE 5.5 (4.5-8.0); PROTEIN URINE TRACE (NEGATIVE); SPECIFIC GRAVITY URINE 1.017 (1.005-1.030)
[2023-02-11 15:06] LABS: WBC URINE TNTC /hpf (0-2)
[2023-02-11 15:07] LABS: BACTERIA URINE 4+; SQUAMOUS EPITHELIAL CELL URINE 2+ /lpf (RARE/1+); YEAST URINE NONE SEEN
[2023-02-11] MEDS ORDERED: MAGNESIUM/ALUMINUM HYDROXIDE/SIMETHICONE 30ML UDC PO PRN (15:15)
[2023-02-11] MEDS ORDERED: IPRATROPIUM/ALBUTEROL 0.5-3(2.5)MG/3ML NEB NEB PRN (15:15)
[2023-02-11] MEDS ORDERED: GUAIFENESIN 200MG/10ML SUGAR FREE UDC PO PRN (15:15)
[2023-02-11] MEDS ORDERED: PANTOPRAZOLE SODIUM 40 MG/VIAL IV NR (15:15)
[2023-02-11] MEDS ORDERED: DOCUSATE SODIUM 100MG CAPSULE PO PRN (15:15)
[2023-02-11] MEDS ORDERED: ONDANSETRON HCL 4MG/2ML INJ IV PRN (15:15)
[2023-02-11] MEDS ORDERED: NOREPINEPHRINE 8 MG in DEXT 5% WATER 242 ML IV PRN (15:15)
[2023-02-11] MEDS ORDERED: ACETAMINOPHEN 325MG TABLET PO PRN ×2 (15:15)
[2023-02-11] MEDS ORDERED: NOREPINEPHRINE 8MG/250ML PMX 250 ML IV PRN (15:30)
[2023-02-11 15:35] LABS: LACTIC ACID 8.9 mmol/L (0.4-2.0)
[2023-02-11 15:39] LABS: PLATELET ESTIMATE NORMAL
[2023-02-11] MEDS ORDERED: VANCOMYCIN 1G PREMIX 200 ML IV NR (15:45)
[2023-02-11 16:10] LABS: TROPONIN I HIGH SENSITIVITY 26 ng/L (3.0-34)
[2023-02-11 16:13] LABS: FOLIC ACID (FOLATE) SERUM 9.09 ng/mL (>5.38); VITAMIN B12 SERUM 436 pg/mL (211-911)
[2023-02-11 16:14] LABS: CHOLESTEROL 80 mg/dL (<200); HDL CHOLESTEROL 20 mg/dL (>65); IRON 135 ug/dL (50-170); LDL CHOLESTEROL 43 mg/dL (5-100); T4 FREE 0.86 ng/dL (0.89-1.76); THYROID STIMULATING HORMONE 1.87 uIU/mL (0.55-4.78); TOTAL IRON BINDING CAPACITY 247 ug/dl (250-425); TRIGLYCERIDE 106 mg/dL (0-150)
[2023-02-11 16:19] LABS: *AMPHETAMINES SCREEN URINE NEGATIVE (NEGATIVE); *BARBITURATES SCREEN URINE NEGATIVE (NEGATIVE); *BENZODIAZEPINES SCREEN URINE NEGATIVE (NEGATIVE); *COCAINE SCREEN URINE NEGATIVE (NEGATIVE); CANNABINOID URINE SCREEN NEGATIVE (NEGATIVE); ECSTASY MDMA SCREEN URINE NEGATIVE (NEGATIVE); METHADONE URINE SCREEN Neg (NEGATIVE); OPIATES URINE SCREEN NEGATIVE (NEGATIVE); PHENCYCLIDINE URINE SCREEN NEGATIVE (NEGATIVE)
[2023-02-11] MEDS ORDERED: PIPERACILLIN/TAZOBACTAM 3.375GM/50ML PREMIX IV ONE (17:30)
[2023-02-11] MEDS ORDERED: VANCOMYCIN 1G PREMIX 200 ML IV SCH (17:30)
[2023-02-11] MEDS: PIPERACILLIN/TAZ 3.375G PREMIX 50 ML IV SCH ×2 (17:44→23:30)
[2023-02-11] MEDS: DEXT 5%/LACTATED RINGERS 1,000 ML IV SCH (19:37)
[2023-02-11] MEDS ORDERED: OCTREOTIDE 1,000 MCG in SODIUM CHLORIDE 0.9% 100 ML IV SCH (21:00)
[2023-02-11] MEDS ORDERED: PANTOPRAZOLE 80 MG in SODIUM CHLORIDE 0.9% 100 ML IV SCH (21:00)
[2023-02-11 23:15] VITALS: BP 120/105; PULSE 109; RESP 20
[2023-02-11 23:30] VITALS: BP 123/50; PULSE 112; RESP 23
[2023-02-11 23:45] VITALS: BP 125/69; PULSE 108; RESP 24; TEMP 98.2
[2023-02-12] VITALS (79 sets, daily range): BP systolic 94–152; BP diastolic 50–119; PULSE 83–117; RESP 13–28; TEMP 96.8–98.2
[2023-02-12] MEDS: DEXT 5%/LACTATED RINGERS 1,000 ML IV SCH ×2 (00:45→17:35)
[2023-02-12] MEDS: PANTOPRAZOLE 80 MG in SODIUM CHLORIDE 0.9% 100 ML IV SCH ×3 (00:45→20:09)
[2023-02-12 01:27] LABS: HEMATOCRIT 36.7 % (36.0-48.0); HEMOGLOBIN 11.8 g/dL (12.0-16.0)
[2023-02-12] MEDS ORDERED: METO25TA6 PO (01:29)
[2023-02-12] MEDS ORDERED: QUET100T34 PO (01:29)
[2023-02-12] MEDS ORDERED: ENOX30DI4 SUBCUT (01:29)
[2023-02-12] MEDS ORDERED: ATOR40TA70 PO (01:29)
[2023-02-12] MEDS ORDERED: AMLO10TA80 PO (01:29)
[2023-02-12] MEDS: PIPERACILLIN/TAZOBACTAM 3.375 G in DEXTROSE 5% WATER 50 ML IV SCH ×4 (02:16→21:13)
[2023-02-12 03:14] LABS: CREATINE KINASE MB FRACTION 2.5 ng/mL (0.5-3.6)
[2023-02-12 05:38] LABS: AMMONIA 22 uMol/L (<32)
[2023-02-12 05:46] LABS: HEMATOCRIT. 31.4 % (36.0-48.0); HEMOGLOBIN. 10.2 g/dL (12.0-16.0); MEAN CORPUSCULAR HEMOGLOBIN 29.6 pg (28.0-32.0); MEAN CORPUSCULAR HGB CONC 32.5 g/dL (31.0-37.0); MEAN CORPUSCULAR VOLUME 91.1 fL (81.0-99.0); MEAN PLATELET VOLUME 9.5 fl (7.4-10.4); PLATELET 111 x1000/uL (130-400); RED BLOOD CELL COUNT 3.44 mill/uL (4.2-5.4); RED CELL DISTRIBUTION WIDTH 16.4 % (11.6-14.6); WHITE BLOOD COUNT 14.3 x1000/uL (4.5-11.0)
[2023-02-12] MEDS ORDERED: PIPERACILLIN/TAZOBACTAM 3.375G in DEXT 5% WATER 50ML IV SCH (06:00)
[2023-02-12] MEDS: LEVOTHYROXINE SODIUM 50MCG TABLET PO SCH (06:05)
[2023-02-12 06:08] LABS: ALANINE AMINOTRANSFERASE 37 IU/L (10-49); ALBUMIN 2.6 g/dL (3.2-4.8); ASPARTATE AMINOTRANSFERASE 27 IU/L (<34); BILIRUBIN TOTAL 0.4 mg/dL (0.1-1.0); CALCIUM 7.9 mg/dL (8.7-10.4); CARBON DIOXIDE 31 mEq/L (21-32); CHLORIDE 104 mEq/L (98-107); CREATININE 0.6 mg/dL (0.6-1.0); GLUCOSE 215 mg/dL (70-105); PHOSPHORUS 3.5 mg/dL (2.5-4.9); POTASSIUM 3.5 mEq/L (3.5-5.1); PROTEIN TOTAL 4.8 g/dL (6.0-8.3); SODIUM 141 mEq/L (136-145); UREA NITROGEN BLOOD 38 mg/dL (9-23)
[2023-02-12 06:09] LABS: CREATINE KINASE MB FRACTION 2.3 ng/mL (0.5-3.6)
[2023-02-12 06:34] LABS: DIFFERENTIAL COMMENT 1
[2023-02-12 09:09] LABS: BG BASE EXCESS 9.6 mmol/L (-2.0-2.0); BG CARBOXYHEMOGLOBIN 0.6 % (0.5-1.5); BG DEOXYHEMOGLOBIN 1.1 % (0.0-5.0); BG FRACTION INSPIRED OXYGEN 100; BG HCO3 ACT 33.3 mmol/L (22.0-26.0); BG METHEMOGLOBIN 0.1 % (0.0-1.5); BG OXYGEN SATURATION 98.9 % (92.0-98.5); BG OXYHEMOGLOBIN 98.2 % (94.0-97.0); BG PCO2 41.3 mmHg (35.0-45.0); BG PH 7.524 (7.350-7.450); BG PO2 131.2 mmHg (75.0-100.0); BG SAMPLE SITE RIGHT RADIAL; BG TOTAL HEMOGLOBIN 11.6 g/dL (12.0-18.0); BG VENT MODE MASK - NRB
[2023-02-12] MEDS ORDERED: VANCOMYCIN 1.25GM PMX (XELLIA) 250 ML IV SCH (10:00)
[2023-02-12] MEDS: LEVETIRACETAM 500MG/5ML CUP GT SCH ×2 (11:25→21:12)
[2023-02-12 13:01] LABS: NUCLEATED RED BLOOD CELLS 2 /100 WBC
[2023-02-12 13:03] LABS: ANISOCYTOSIS 2+; PLATELET ESTIMATE SLIGHTLY DECREASED
[2023-02-12 13:08] LABS: HEMATOCRIT 30.9 % (36.0-48.0); HEMOGLOBIN 10.1 g/dL (12.0-16.0)
[2023-02-12] MEDS: OCTREOTIDE 1,000 MCG in SODIUM CHLORIDE 0.9% 100 ML IV SCH (16:00)
[2023-02-12] MEDS: VANCOMYCIN 1.25GM PMX (XELLIA) 250 ML IV SCH (16:00)
[2023-02-12 18:09] LABS: HEMATOCRIT 29.5 % (36.0-48.0); HEMOGLOBIN 9.5 g/dL (12.0-16.0)
[2023-02-13] VITALS (51 sets, daily range): BP systolic 96–189; BP diastolic 49–152; PULSE 69–104; RESP 14–31; TEMP 97.4–98.2
[2023-02-13 01:01] LABS: HEMATOCRIT 28.3 % (36.0-48.0); HEMOGLOBIN 9.9 g/dL (12.0-16.0)
[2023-02-13 05:24] LABS: HEMATOCRIT. 28.9 % (36.0-48.0); HEMOGLOBIN. 9.4 g/dL (12.0-16.0); MEAN CORPUSCULAR HEMOGLOBIN 29.7 pg (28.0-32.0); MEAN CORPUSCULAR HGB CONC 32.6 g/dL (31.0-37.0); MEAN CORPUSCULAR VOLUME 91.2 fL (81.0-99.0); MEAN PLATELET VOLUME 9.1 fl (7.4-10.4); PLATELET 109 x1000/uL (130-400); RED BLOOD CELL COUNT 3.17 mill/uL (4.2-5.4); RED CELL DISTRIBUTION WIDTH 16.3 % (11.6-14.6); WHITE BLOOD COUNT 12.4 x1000/uL (4.5-11.0)
[2023-02-13 05:33] LABS: CALCIUM 8.2 mg/dL (8.7-10.4); CARBON DIOXIDE 35 mEq/L (21-32); CHLORIDE 104 mEq/L (98-107); GLUCOSE 168 mg/dL (70-105); SODIUM 143 mEq/L (136-145); UREA NITROGEN BLOOD 10 mg/dL (9-23)
[2023-02-13 05:38] LABS: CREATININE 0.3 mg/dL (0.6-1.0); POTASSIUM 2.7 mEq/L (3.5-5.1)
[2023-02-13] MEDS: DEXT 5%/LACTATED RINGERS 1,000 ML IV SCH ×2 (05:57→21:40)
[2023-02-13] MEDS: PIPERACILLIN/TAZOBACTAM 3.375 G in DEXTROSE 5% WATER 50 ML IV SCH ×3 (05:57→22:41)
[2023-02-13] MEDS: LEVOTHYROXINE SODIUM 50MCG TABLET PO SCH (05:57)
[2023-02-13] MEDS: PANTOPRAZOLE 80 MG in SODIUM CHLORIDE 0.9% 100 ML IV SCH ×2 (05:57→16:30)
[2023-02-13 06:03] LABS: DIFFERENTIAL COMMENT 1
[2023-02-13] MEDS: KCL 20MEQ/100ML PREMIX 100 ML IV SCH ×2 (07:30→11:02)
[2023-02-13] MEDS: LEVETIRACETAM 500MG/5ML CUP GT SCH ×2 (09:24→21:47)
[2023-02-13] MEDS: OCTREOTIDE 1,000 MCG in SODIUM CHLORIDE 0.9% 100 ML IV SCH (11:02)
[2023-02-13 15:16] LABS: PHOSPHORUS 1.7 mg/dL (2.5-4.9)
[2023-02-13] MEDS: VANCOMYCIN 1.25GM PMX (XELLIA) 250 ML IV SCH (15:30)
[2023-02-13 17:58] LABS: PLATELET ESTIMATE NORMAL
[2023-02-13] MEDS: CLONIDINE 0.1MG TABLET PO PRN (18:16)
[2023-02-14] VITALS (60 sets, daily range): BP systolic 121–174; BP diastolic 65–120; PULSE 58–116; RESP 14–32; TEMP 95.9–97.4
[2023-02-14] MEDS: PANTOPRAZOLE 80 MG in SODIUM CHLORIDE 0.9% 100 ML IV SCH ×2 (02:24→13:50)
[2023-02-14] MEDS: PIPERACILLIN/TAZOBACTAM 3.375 G in DEXTROSE 5% WATER 50 ML IV SCH (05:10)
[2023-02-14 05:19] LABS: BASOPHILS % 0.2 % (0.0-2.0); EOSINOPHILS % 0.8 % (0.0-5.0); HEMATOCRIT. 28.3 % (36.0-48.0); HEMOGLOBIN. 9.6 g/dL (12.0-16.0); LYMPHOCYTES % 13.4 % (20.0-50.0); MEAN CORPUSCULAR HEMOGLOBIN 30.6 pg (28.0-32.0); MEAN CORPUSCULAR HGB CONC 33.8 g/dL (31.0-37.0); MEAN CORPUSCULAR VOLUME 90.5 fL (81.0-99.0); MEAN PLATELET VOLUME 9.2 fl (7.4-10.4); MONOCYTES % 6.1 % (2.0-8.0); NEUTROPHILS % 79.5 % (40.0-76.0); PLATELET 107 x1000/uL (130-400); RED BLOOD CELL COUNT 3.12 mill/uL (4.2-5.4); RED CELL DISTRIBUTION WIDTH 16.5 % (11.6-14.6)
[2023-02-14 05:24] LABS: DIFFERENTIAL COMMENT 1
[2023-02-14 05:40] LABS: CALCIUM 7.9 mg/dL (8.7-10.4); CARBON DIOXIDE 38 mEq/L (21-32); CHLORIDE 100 mEq/L (98-107); GLUCOSE 186 mg/dL (70-105); SODIUM 142 mEq/L (136-145); UREA NITROGEN BLOOD 7 mg/dL (9-23)
[2023-02-14 05:41] LABS: CREATININE 0.4 mg/dL (0.6-1.0)
[2023-02-14 05:43] LABS: POTASSIUM 2.8 mEq/L (3.5-5.1)
[2023-02-14] MEDS: LEVOTHYROXINE SODIUM 50MCG TABLET PO SCH (06:20)
[2023-02-14 10:22] LABS: BG CARBOXYHEMOGLOBIN 0.5 % (0.5-1.5); BG FRACTION INSPIRED OXYGEN 32; BG HCO3 ACT 35.5 mmol/L (22.0-26.0); BG OXYHEMOGLOBIN 93.5 % (94.0-97.0); BG PCO2 46.4 mmHg (35.0-45.0); BG PH 7.501 (7.350-7.450); BG PO2 66.2 mmHg (75.0-100.0); BG SAMPLE SITE RIGHT RADIAL; BG TOTAL HEMOGLOBIN 10.7 g/dL (12.0-18.0); BG VENT MODE NASAL CANNULA
[2023-02-14] MEDS: DEXT 5%/LACTATED RINGERS 1,000 ML IV SCH (10:24)
[2023-02-14] MEDS: LEVETIRACETAM 500MG/5ML CUP GT SCH ×2 (10:24→19:33)
[2023-02-14] MEDS ORDERED: POTASSIUM CHLORIDE INJ 40 MEQ in DEXT 5% WATER 250 ML IV NR (11:00)
[2023-02-14] MEDS ORDERED: VANCOMYCIN 1G PREMIX 200 ML IV SCH (12:00)
[2023-02-14] MEDS: CEFTRIAXONE 1,000 MG in DEXTROSE 5% WATER 50 ML IV SCH (16:25)
[2023-02-14] MEDS: CLONIDINE 0.1MG TABLET PO PRN (16:33)
[2023-02-14] MEDS: PANTOPRAZOLE SODIUM 40 MG/VIAL IV SCH (16:42)
[2023-02-14] MEDS: ZOLPIDEM TARTRATE 5MG TABLET PO PRN (21:34)
[2023-02-15] VITALS (54 sets, daily range): BP systolic 114–169; BP diastolic 59–115; PULSE 66–99; RESP 14–38; TEMP 98–99.3
[2023-02-15 05:25] LABS: BASOPHILS % 0.3 % (0.0-2.0); EOSINOPHILS % 1.3 % (0.0-5.0); HEMATOCRIT. 32.5 % (36.0-48.0); HEMOGLOBIN. 10.7 g/dL (12.0-16.0); LYMPHOCYTES % 15.2 % (20.0-50.0); MEAN CORPUSCULAR HEMOGLOBIN 30.3 pg (28.0-32.0); MEAN CORPUSCULAR HGB CONC 32.9 g/dL (31.0-37.0); MEAN CORPUSCULAR VOLUME 92.1 fL (81.0-99.0); MEAN PLATELET VOLUME 8.9 fl (7.4-10.4); MONOCYTES % 6.9 % (2.0-8.0); NEUTROPHILS % 76.3 % (40.0-76.0); PLATELET 125 x1000/uL (130-400); RED BLOOD CELL COUNT 3.52 mill/uL (4.2-5.4); RED CELL DISTRIBUTION WIDTH 16.6 % (11.6-14.6); WHITE BLOOD COUNT 8.8 x1000/uL (4.5-11.0)
[2023-02-15 05:42] LABS: ALANINE AMINOTRANSFERASE 31 IU/L (10-49); ASPARTATE AMINOTRANSFERASE 21 IU/L (<34); BILIRUBIN TOTAL 0.4 mg/dL (0.1-1.0); CALCIUM 8.2 mg/dL (8.7-10.4); CHLORIDE 96 mEq/L (98-107); CREATININE 0.3 mg/dL (0.6-1.0); GLUCOSE 124 mg/dL (70-105); PHOSPHORUS 1.7 mg/dL (2.5-4.9); PROTEIN TOTAL 5.4 g/dL (6.0-8.3); SODIUM 139 mEq/L (136-145); UREA NITROGEN BLOOD 7 mg/dL (9-23)
[2023-02-15 05:53] LABS: POTASSIUM 2.7 mEq/L (3.5-5.1)
[2023-02-15 05:54] LABS: CARBON DIOXIDE > 40 mEq/L (21-32)
[2023-02-15] MEDS ORDERED: MAGNESIUM 2 G PREMIX 50 ML IV NR ×2 (06:15→09:30)
[2023-02-15] MEDS: LEVOTHYROXINE SODIUM 50MCG TABLET PO SCH (06:32)
[2023-02-15] MEDS: DEXT 5%/LACTATED RINGERS 1,000 ML IV SCH ×2 (06:32→13:25)
[2023-02-15] MEDS ORDERED: POTASSIUM PHOS,M-BASIC-D-BASIC 15 MMOL in DEXT 5% WATER 245 ML IV NR (06:45)
[2023-02-15] MEDS: PANTOPRAZOLE SODIUM 40 MG/VIAL IV SCH ×2 (08:24→16:40)
[2023-02-15] MEDS: LEVETIRACETAM 500MG/5ML CUP GT SCH ×2 (08:27→21:10)
[2023-02-15 09:24] LABS: BG CARBOXYHEMOGLOBIN 0.8 % (0.5-1.5); BG DEOXYHEMOGLOBIN 5.1 % (0.0-5.0); BG FRACTION INSPIRED OXYGEN 32; BG METHEMOGLOBIN 0.1 % (0.0-1.5); BG OXYGEN SATURATION 94.9 % (92.0-98.5); BG PCO2 59.4 mmHg (35.0-45.0); BG PH 7.478 (7.350-7.450); BG PO2 68.6 mmHg (75.0-100.0); BG SAMPLE SITE RIGHT RADIAL; BG TOTAL HEMOGLOBIN 11.1 g/dL (12.0-18.0); BG VENT MODE NASAL CANNULA
[2023-02-15] MEDS ORDERED: ACETAZOLAMIDE SODIUM 500MG/VIAL IV NR (09:30)
[2023-02-15 14:05] LABS: CALCIUM 7.8 mg/dL (8.7-10.4); CARBON DIOXIDE 38 mEq/L (21-32); CHLORIDE 99 mEq/L (98-107); GLUCOSE 324 mg/dL (70-105); SODIUM 139 mEq/L (136-145); UREA NITROGEN BLOOD 7 mg/dL (9-23)
[2023-02-15 14:11] LABS: CREATININE 0.4 mg/dL (0.6-1.0)
[2023-02-15] MEDS: CEFTRIAXONE 1,000 MG in DEXTROSE 5% WATER 50 ML IV SCH (15:41)
[2023-02-15] MEDS ORDERED: POTASSIUM CHLORIDE 20MEQ/PACKET PEG NR ×2 (16:15→23:00)
[2023-02-15] MEDS: INSULIN LISPRO 100 UNITS/ML SUBCUT SCH ×2 (18:15→21:12)
[2023-02-15] MEDS ORDERED: DEXTROSE 50% WATER 50ML SYRINGE IV PRN (18:15)
[2023-02-15] MEDS: BLOOD SUGAR DIAGNOSTIC STRIP TEST SCH ×2 (19:12→21:00)
[2023-02-15] MEDS: ZOLPIDEM TARTRATE 5MG TABLET PO PRN (21:10)
[2023-02-15 22:23] LABS: CALCIUM 8.3 mg/dL (8.7-10.4); CARBON DIOXIDE 31 mEq/L (21-32); CHLORIDE 104 mEq/L (98-107); CREATININE 0.3 mg/dL (0.6-1.0); GLUCOSE 137 mg/dL (70-105); POTASSIUM 3.4 mEq/L (3.5-5.1); SODIUM 139 mEq/L (136-145); UREA NITROGEN BLOOD 8 mg/dL (9-23)
[2023-02-16] VITALS (27 sets, daily range): BP systolic 145–165; BP diastolic 78–101; PULSE 62–103; RESP 13–27; TEMP 97.1–99
[2023-02-16 05:19] LABS: HEMATOCRIT. 35.2 % (36.0-48.0); HEMOGLOBIN. 11.3 g/dL (12.0-16.0); MEAN CORPUSCULAR HEMOGLOBIN 30.4 pg (28.0-32.0); MEAN CORPUSCULAR VOLUME 94.9 fL (81.0-99.0); MEAN PLATELET VOLUME 9.1 fl (7.4-10.4); PLATELET 133 x1000/uL (130-400); RED BLOOD CELL COUNT 3.71 mill/uL (4.2-5.4); RED CELL DISTRIBUTION WIDTH 16.8 % (11.6-14.6); WHITE BLOOD COUNT 8.9 x1000/uL (4.5-11.0)
[2023-02-16 05:36] LABS: CALCIUM 8.2 mg/dL (8.7-10.4); CARBON DIOXIDE 28 mEq/L (21-32); CHLORIDE 105 mEq/L (98-107); CREATININE 0.3 mg/dL (0.6-1.0); GLUCOSE 166 mg/dL (70-105); PHOSPHORUS 2.1 mg/dL (2.5-4.9); POTASSIUM 3.7 mEq/L (3.5-5.1); SODIUM 138 mEq/L (136-145); UREA NITROGEN BLOOD 6 mg/dL (9-23)
[2023-02-16 05:51] LABS: DIFFERENTIAL COMMENT 1
[2023-02-16] MEDS: BLOOD SUGAR DIAGNOSTIC STRIP TEST SCH ×4 (06:30→21:00)
[2023-02-16] MEDS: LEVOTHYROXINE SODIUM 50MCG TABLET PO SCH (06:39)
[2023-02-16] MEDS: INSULIN LISPRO 100 UNITS/ML SUBCUT SCH ×4 (06:40→21:00)
[2023-02-16] MEDS: PANTOPRAZOLE SODIUM 40 MG/VIAL IV SCH ×2 (08:48→17:02)
[2023-02-16] MEDS: LEVETIRACETAM 500MG/5ML CUP GT SCH ×2 (08:48→22:25)
[2023-02-16] MEDS: DEXT 5%/LACTATED RINGERS 1,000 ML IV SCH (13:06)
[2023-02-16] MEDS ORDERED: POTASSIUM PHOS,M-BASIC-D-BASIC 15 MMOL in DEXT 5% WATER 245 ML IV ONE (14:00)
[2023-02-16] MEDS: CEFTRIAXONE 1,000 MG in DEXTROSE 5% WATER 50 ML IV SCH (15:11)
[2023-02-16 17:08] LABS: PLATELET ESTIMATE NORMAL
[2023-02-16 17:19] LABS: BASOPHILS % 0.3 % (0.0-2.0); HEMATOCRIT. 38.1 % (36.0-48.0); LYMPHOCYTES % 10.3 % (20.0-50.0); MEAN CORPUSCULAR HEMOGLOBIN 29.6 pg (28.0-32.0); MEAN CORPUSCULAR HGB CONC 31.5 g/dL (31.0-37.0); MEAN CORPUSCULAR VOLUME 94.1 fL (81.0-99.0); MEAN PLATELET VOLUME 8.8 fl (7.4-10.4); MONOCYTES % 5.9 % (2.0-8.0); NEUTROPHILS % 82.5 % (40.0-76.0); PLATELET 160 x1000/uL (130-400); RED BLOOD CELL COUNT 4.05 mill/uL (4.2-5.4); RED CELL DISTRIBUTION WIDTH 17.1 % (11.6-14.6); WHITE BLOOD COUNT 11.2 x1000/uL (4.5-11.0)
[2023-02-16 17:52] LABS: CALCIUM 8.7 mg/dL (8.7-10.4); CARBON DIOXIDE 28 mEq/L (21-32); CHLORIDE 100 mEq/L (98-107); GLUCOSE 168 mg/dL (70-105); POTASSIUM 3.8 mEq/L (3.5-5.1); SODIUM 136 mEq/L (136-145); UREA NITROGEN BLOOD 7 mg/dL (9-23)
[2023-02-16 17:59] LABS: CREATININE 0.4 mg/dL (0.6-1.0)
[2023-02-16 19:55] LABS: PHOSPHORUS 2.9 mg/dL (2.5-4.9)
[2023-02-16] MEDS: CLONIDINE 0.1MG TABLET PO PRN (22:24)
[2023-02-17] VITALS (8 sets, daily range): BP systolic 120–177; BP diastolic 70–96; PULSE 73–102; RESP 16–20; TEMP 96.3–97.8
[2023-02-17] MEDS: LEVOTHYROXINE SODIUM 50MCG TABLET PO SCH ×2 (06:36→08:56)
[2023-02-17] MEDS: BLOOD SUGAR DIAGNOSTIC STRIP TEST SCH ×4 (06:36→21:00)
[2023-02-17] MEDS: DEXT 5%/LACTATED RINGERS 1,000 ML IV SCH ×2 (06:53→18:10)
[2023-02-17 07:20] LABS: INR 0.9; PROTHROMBIN TIME 9.9 sec (9.6-11.0)
[2023-02-17 07:22] LABS: HEMATOCRIT. 36.8 % (36.0-48.0); HEMOGLOBIN. 12.4 g/dL (12.0-16.0); MEAN CORPUSCULAR HEMOGLOBIN 30.6 pg (28.0-32.0); MEAN CORPUSCULAR HGB CONC 33.6 g/dL (31.0-37.0); MEAN CORPUSCULAR VOLUME 91.1 fL (81.0-99.0); MEAN PLATELET VOLUME 8.9 fl (7.4-10.4); PLATELET 171 x1000/uL (130-400); RED BLOOD CELL COUNT 4.04 mill/uL (4.2-5.4); RED CELL DISTRIBUTION WIDTH 16.8 % (11.6-14.6); WHITE BLOOD COUNT 8.3 x1000/uL (4.5-11.0)
[2023-02-17] MEDS: INSULIN LISPRO 100 UNITS/ML SUBCUT SCH ×4 (08:09→21:00)
[2023-02-17 08:19] LABS: DIFFERENTIAL COMMENT 1
[2023-02-17] MEDS: LEVETIRACETAM 500MG/5ML CUP GT SCH ×2 (08:55→22:15)
[2023-02-17] MEDS: AMLODIPINE 10MG TABLET PO SCH (08:56)
[2023-02-17] MEDS: PANTOPRAZOLE SODIUM 40 MG/VIAL IV SCH ×2 (08:56→16:09)
[2023-02-17 11:16] LABS: CALCIUM 8.9 mg/dL (8.7-10.4); CARBON DIOXIDE 29 mEq/L (21-32); CHLORIDE 99 mEq/L (98-107); CREATININE 0.3 mg/dL (0.6-1.0); GLUCOSE 115 mg/dL (70-105); POTASSIUM 3.4 mEq/L (3.5-5.1); SODIUM 138 mEq/L (136-145); UREA NITROGEN BLOOD 7 mg/dL (9-23)
[2023-02-17] MEDS: CEFTRIAXONE 1,000 MG in DEXTROSE 5% WATER 50 ML IV SCH (14:46)
[2023-02-17] MEDS ORDERED: KCL 20MEQ/100ML PREMIX 100 ML IV SCH (16:00)
[2023-02-17 17:27] LABS: PLATELET ESTIMATE NORMAL
[2023-02-18 03:52] VITALS: BP 119/68; PULSE 83; RESP 18; TEMP 97.8
[2023-02-18] MEDS: DEXT 5%/LACTATED RINGERS 1,000 ML IV SCH ×2 (06:39→21:48)
[2023-02-18] MEDS: BLOOD SUGAR DIAGNOSTIC STRIP TEST SCH ×4 (06:41→21:45)
[2023-02-18] MEDS: INSULIN LISPRO 100 UNITS/ML SUBCUT SCH ×4 (07:15→21:00)
[2023-02-18 07:25] LABS: HEMATOCRIT. 34.1 % (36.0-48.0); HEMOGLOBIN. 11.3 g/dL (12.0-16.0); MEAN CORPUSCULAR HEMOGLOBIN 30.3 pg (28.0-32.0); MEAN CORPUSCULAR HGB CONC 33.2 g/dL (31.0-37.0); MEAN CORPUSCULAR VOLUME 91.1 fL (81.0-99.0); MEAN PLATELET VOLUME 9.2 fl (7.4-10.4); PLATELET 193 x1000/uL (130-400); RED BLOOD CELL COUNT 3.74 mill/uL (4.2-5.4); RED CELL DISTRIBUTION WIDTH 16.8 % (11.6-14.6); WHITE BLOOD COUNT 6.7 x1000/uL (4.5-11.0)
[2023-02-18 07:27] LABS: DIFFERENTIAL COMMENT 1
[2023-02-18 08:00] VITALS: BP_SYST 130; BP_SYST 131; BP_DIAS 73; BP_DIAS 80; PULSE 89; PULSE 98; RESP 18; TEMP 96.3; TEMP 97.4
[2023-02-18] MEDS: LEVOTHYROXINE SODIUM 50MCG TABLET PO SCH (08:23)
[2023-02-18] MEDS: LEVETIRACETAM 500MG/5ML CUP GT SCH ×2 (08:23→21:44)
[2023-02-18] MEDS: PANTOPRAZOLE SODIUM 40 MG/VIAL IV SCH ×2 (08:23→16:34)
[2023-02-18] MEDS: AMLODIPINE 10MG TABLET PO SCH (08:24)
[2023-02-18 08:28] LABS: CALCIUM 8.4 mg/dL (8.7-10.4); CARBON DIOXIDE 33 mEq/L (21-32); CHLORIDE 100 mEq/L (98-107); GLUCOSE 118 mg/dL (70-105); POTASSIUM 3.4 mEq/L (3.5-5.1); SODIUM 138 mEq/L (136-145); UREA NITROGEN BLOOD 8 mg/dL (9-23)
[2023-02-18 08:40] LABS: CREATININE 0.4 mg/dL (0.6-1.0)
[2023-02-18] MEDS ORDERED: KCL 20MEQ/100ML PREMIX 100 ML IV NR (11:00)
[2023-02-18 12:00] VITALS: BP 124/77; PULSE 81; RESP 18; TEMP 96.9
[2023-02-18] MEDS: CEFTRIAXONE 1,000 MG in DEXTROSE 5% WATER 50 ML IV SCH (14:41)
[2023-02-18 15:09] LABS: ANISOCYTOSIS 1+; PLATELET ESTIMATE NORMAL
[2023-02-18 16:00] VITALS: BP 140/72; PULSE 104; RESP 19; TEMP 98.4
[2023-02-18 16:51] VITALS: BP 140/72; PULSE 104; RESP 19; TEMP 98.4
[2023-02-19] MEDS: DEXT 5%/0.9% NACL 1,000 ML IV SCH ×2 (01:14→09:41)
[2023-02-19 03:20] LABS: BASOPHILS % 0.8 % (0.0-2.0); EOSINOPHILS % 2.2 % (0.0-5.0); HEMATOCRIT. 35.3 % (36.0-48.0); HEMOGLOBIN. 11.8 g/dL (12.0-16.0); LYMPHOCYTES % 20.2 % (20.0-50.0); MEAN CORPUSCULAR HEMOGLOBIN 30.5 pg (28.0-32.0); MEAN CORPUSCULAR HGB CONC 33.6 g/dL (31.0-37.0); MEAN CORPUSCULAR VOLUME 90.8 fL (81.0-99.0); MONOCYTES % 11.2 % (2.0-8.0); NEUTROPHILS % 65.6 % (40.0-76.0); PLATELET 230 x1000/uL (130-400); RED BLOOD CELL COUNT 3.89 mill/uL (4.2-5.4); RED CELL DISTRIBUTION WIDTH 17.1 % (11.6-14.6); WHITE BLOOD COUNT 6.2 x1000/uL (4.5-11.0)
[2023-02-19 03:33] LABS: CALCIUM 8.5 mg/dL (8.7-10.4); CARBON DIOXIDE 32 mEq/L (21-32); CHLORIDE 102 mEq/L (98-107); CREATININE 0.3 mg/dL (0.6-1.0); GLUCOSE 104 mg/dL (70-105); POTASSIUM 3.5 mEq/L (3.5-5.1); SODIUM 140 mEq/L (136-145); UREA NITROGEN BLOOD 7 mg/dL (9-23)
[2023-02-19 03:35] LABS: PROTHROMBIN TIME 10.5 sec (9.6-11.0)
[2023-02-19] MEDS: BLOOD SUGAR DIAGNOSTIC STRIP TEST SCH ×4 (06:51→20:49)
[2023-02-19] MEDS: INSULIN LISPRO 100 UNITS/ML SUBCUT SCH ×4 (08:05→20:49)
[2023-02-19] MEDS: LEVETIRACETAM 500MG/5ML CUP GT SCH ×2 (09:00→20:49)
[2023-02-19] MEDS: AMLODIPINE 10MG TABLET PO SCH (09:00)
[2023-02-19] MEDS: PANTOPRAZOLE SODIUM 40 MG/VIAL IV SCH ×2 (10:13→17:41)
[2023-02-19 16:00] VITALS: BP 152/96; PULSE 86; RESP 18; TEMP 96.9
[2023-02-19 20:00] VITALS: BP 139/70; PULSE 96; RESP 17; TEMP 98.8
[2023-02-20] MEDS: DEXT 5%/0.9% NACL 1,000 ML IV SCH ×2 (02:52→10:27)
[2023-02-20 05:41] LABS: BASOPHILS % 0.4 % (0.0-2.0); EOSINOPHILS % 1.4 % (0.0-5.0); HEMATOCRIT. 33.5 % (36.0-48.0); HEMOGLOBIN. 11.1 g/dL (12.0-16.0); LYMPHOCYTES % 12.2 % (20.0-50.0); MEAN CORPUSCULAR HEMOGLOBIN 30.6 pg (28.0-32.0); MEAN CORPUSCULAR HGB CONC 33.2 g/dL (31.0-37.0); MEAN CORPUSCULAR VOLUME 92.1 fL (81.0-99.0); MEAN PLATELET VOLUME 9.1 fl (7.4-10.4); PLATELET 254 x1000/uL (130-400); RED BLOOD CELL COUNT 3.64 mill/uL (4.2-5.4); WHITE BLOOD COUNT 10.4 x1000/uL (4.5-11.0)
[2023-02-20 05:48] LABS: CALCIUM 8.2 mg/dL (8.7-10.4); CARBON DIOXIDE 33 mEq/L (21-32); CHLORIDE 103 mEq/L (98-107); CREATININE 0.3 mg/dL (0.6-1.0); GLUCOSE 107 mg/dL (70-105); POTASSIUM 3.3 mEq/L (3.5-5.1); SODIUM 140 mEq/L (136-145); UREA NITROGEN BLOOD 7 mg/dL (9-23)
[2023-02-20] MEDS: BLOOD SUGAR DIAGNOSTIC STRIP TEST SCH ×2 (07:40→12:32)
[2023-02-20] MEDS ORDERED: KCL 20MEQ/100ML PREMIX 100 ML IV SCH (08:00)
[2023-02-20] MEDS: INSULIN LISPRO 100 UNITS/ML SUBCUT SCH ×2 (08:10→12:32)
[2023-02-20] MEDS: AMLODIPINE 10MG TABLET PO SCH (10:18)
[2023-02-20] MEDS: LEVOTHYROXINE SODIUM 50MCG TABLET PO SCH (10:18)
[2023-02-20] MEDS: LEVETIRACETAM 500MG/5ML CUP GT SCH (10:27)
[2023-02-20] MEDS: PANTOPRAZOLE SODIUM 40 MG/VIAL IV SCH (12:34)
[2023-02-20 15:02] VITALS: BP 136/75; PULSE 80; TEMP 97.9; O2SAT 99
== END 2023-02-20 15:30 | DRG 871 ==
LOC: ER 12:31 → EDBEDREQ 12:45 → MICUSO 14:37 → EDBEDREQSVC 14:42 → EDBEDREQ 14:42 → MICUSO 02-12 00:02 → 7WST 02-16 10:21
PROVIDERS: ADMIT Internal Medicine; ATTEND Internal Medicine
PROC: 30233K1 Transfusion of Nonautologous Frozen Plasma into Peripheral Vein, Percutaneous Approach (ICD-10-PCS; 2023-02-11)
PROC: 30233N1 Transfusion of Nonautologous Red Blood Cells into Peripheral Vein, Percutaneous Approach (ICD-10-PCS; 2023-02-11)
PROC: 02HV33Z Insertion of Infusion Device into Superior Vena Cava, Percutaneous Approach (ICD-10-PCS; 2023-02-13)
PROC: B548ZZA Ultrasonography of Superior Vena Cava, Guidance (ICD-10-PCS; 2023-02-13)
PROC: 0DB78ZX Excision of Stomach, Pylorus, Via Natural or Artificial Opening Endoscopic, Diagnostic (ICD-10-PCS; principal; 2023-02-19)
DX: A41.9 Sepsis, unspecified organism (principal); E43 Unspecified severe protein-calorie malnutrition; J96.01 Acute respiratory failure with hypoxia; R57.8 Other shock; R65.21 Severe sepsis with septic shock; J18.9 Pneumonia, unspecified organism; G92.8 Other toxic encephalopathy; I82.431 Acute embolism and thrombosis of right popliteal vein; F03.93 Unspecified dementia, unspecified severity, with mood disturbance; D53.9 Nutritional anemia, unspecified; Z20.822 Contact with and (suspected) exposure to COVID-19; D69.6 Thrombocytopenia, unspecified; E03.9 Hypothyroidism, unspecified; N30.90 Cystitis, unspecified without hematuria; E83.39 Other disorders of phosphorus metabolism; K29.60 Other gastritis without bleeding; K44.9 Diaphragmatic hernia without obstruction or gangrene; R70.1 Abnormal plasma viscosity; E87.6 Hypokalemia; F20.9 Schizophrenia, unspecified; F31.9 Bipolar disorder, unspecified; G40.909 Epilepsy, unspecified, not intractable, without status epilepticus; I10 Essential (primary) hypertension; R13.10 Dysphagia, unspecified; F41.9 Anxiety disorder, unspecified; R73.9 Hyperglycemia, unspecified; Z79.82 Long term (current) use of aspirin; Z86.73 Personal history of transient ischemic attack (TIA), and cerebral infarction without residual deficits; Z79.899 Other long term (current) drug therapy; Z68.25 Body mass index [BMI] 25.0-25.9, adult
CPT/HCPCS: 36415; 36573; 36600; 71045; 74018; 76700; 80048; 80053; 80061; 80202; 80305; 81003; 82140; 82270; 82375; 82550; 82553; 82607; 82746; 82805; 82962; 83036; 83540; 83550; 83605; 83735; 83880; 84100; 84145; 84439; 84443; 84484; 85014; 85018; 85025; 85044; 85384; 86850; 86900; 86920; 86927; 87077; 87186; 87426; 88305; 88312; 88313; 89055; 93005; 93970; 99285; A6261; C1725; C9113; J0696; J1120; J1815; J2354; J2543; J3370; J3475; J3480; J3490; J7042; J7050; J7060; P9016; P9017